=== PATIENT | female | born 1955 | race Caucasian/White ===

== ENCOUNTER 2021-02-03 | Emergency (ER) | payer SELFPAY ==
[2021-02-03 00:17] VITALS: BP 199/108; PULSE 91; RESP 16; TEMP 36.6; O2SAT 99
[2021-02-03 00:28] VITALS: BP 199/108; BP 209/97
[2021-02-03 01:00] LABS: Basophils Absolute Auto 0.1 K/mm3 (0.0-0.1); Basophils Percent Auto 0.7 % (0.2-1.2); Eosinophils Absolute Auto 0.4 K/mm3 (0-0.3); Eosinophils Percent Auto 4.1 % (0-4.4); Hematocrit 38.1 % (37.0-47.0); Hemoglobin 12.8 g/dL (12.0-15.0); Immature Granulocyte Absolute 0.12 K/mm3 (0.00-0.031); Immature Granulocyte Percent A 1.4 % (0-0.5); Lymphocytes Absolute Auto 2.56 K/mm3 (0.9-3.2); Mean Corpuscular HGB Conc 33.6 g/dl (32-36); Mean Corpuscular Hemoglobin 29.3 pg (26-34); Mean Corpuscular Volume 87.2 fl (80-100); Monocytes Absolute Auto 0.8 K/mm3 (0.1-0.6); Monocytes Percent Auto 9.1 % (2.6-8.5); Neutrophils Absolute Auto 4.7 K/mm3 (1.3-6.7); Neutrophils Percent Auto 54.7 % (45.5-73.1); Platelet Count Result 338 k/mm3 (150-375); Red Blood Count 4.37 M/mm3 (4.2-5.4); Red Cell Distribution Width 12.2 % (11.5-14.5); White Blood Count 8.5 K/mm3 (4.5-10.0)
--- NOTE | 2021-02-03 01:07 | ED.GENADULT ---
HPI - General Adult General Chief complaint: Recheck/Abnormal Lab/Rx Stated complaint: high bp Time Seen by Provider: 02/03/21 00:15 History of Present Illness HPI narrative: Patient 65-year-old female presents the emergency department with chief complaint of high blood pressure. Patient reports that she has history of hypertension and is currently on a low-dose hydrochlorothiazide patient reports that she started having little bit of a headache and has not really been checking her blood pressure but decided to go ahead and check her blood pressure noticed that her blood pressure was in the 200s over the 100s. The patient states she had some bit of neck discomfort with this reports no shortness of breath no chest pain. Related Data Allergies Allergy/AdvReac Type Severity Reaction Status Date / Time NKDA Allergy Unknown Other Uncoded 02/03/21 00:23 Review of Systems Review of Systems: A 10 system review of systems was completed on the patient and is negative except for what is stated in the HPI. Nursing and ancillary documentation was reviewed. [facility] Family History Family History Mother Hypertension Sibling Hypertension Family history of heart disease in male family member before age 55 Father Family history of kidney disease Family history of diabetes mellitus in first degree relative Family history of heart disease in male family member before age 55 Social History Social History Smoking status: Never smoker Alcohol intake: current Exam Narrative: GENERAL: Well-appearing, well-nourished, and in no acute distress. HEAD: Normocephalic, atraumatic. EYES: PERRLA and EOMI. ENT: Nares clear, no rhinorrhea or epistaxis. Mucous membranes moist. NECK: Supple. CHEST: Clear to auscultation. No respiratory distress. HEART: Regular rate and rhythm. No murmur heard. Normal peripheral pulses. ABDOMEN: Soft, nontender, nondistended, normal active bowel sounds. EXTREMITIES: Normal range of motion. No edema. SKIN: Warm, dry, no rash. NEURO: No focal deficits. Alert and oriented x3. PSYCH: Normal mood and affect. Course Vital Signs Vital signs: Vital Signs Temperature 36.6 C 02/03/21 00:17 Pulse Rate 91 02/03/21 00:17 Respiratory Rate 16 02/03/21 00:17 Blood Pressure 199/108 H 02/03/21 00:17 Pulse Oximetry 99 02/03/21 00:17 Temperature 36.6 C 02/03/21 00:17 Pulse Rate 91 02/03/21 00:17 Respiratory Rate 16 02/03/21 00:17 Blood Pressure 167/86 H 02/03/21 01:35 Pulse Oximetry 99 02/03/21 00:17 Medical Decision Making Vital Signs Vital Signs: Vital Signs Temperature 36.6 C 02/03/21 00:17 Pulse Rate 91 02/03/21 00:17 Respiratory Rate 16 02/03/21 00:17 Blood Pressure 199/108 H 02/03/21 00:17 Pulse Oximetry 99 02/03/21 00:17 Temperature 36.6 C 02/03/21 00:17 Pulse Rate 91 02/03/21 00:17 Respiratory Rate 16 02/03/21 00:17 Blood Pressure 167/86 H 02/03/21 01:35 Pulse Oximetry 99 02/03/21 00:17 Lab Data Result diagrams: 02/03/21 00:53 02/03/21 00:52 Labs: Lab Results 02/03/21 02/03/21 02/03/21 Range/Units 00:52 00:53 01:09 WBC 8.5 (4.5-10.0) K/mm3 RBC 4.37 (4.2-5.4) M/mm3 Hgb 12.8 (12.0-15.0) g/dL Hct 38.1 (37.0-47.0) % MCV 87.2 (80-100) fl MCH 29.3 (26-34) pg MCHC 33.6 (32-36) g/dl RDW 12.2 (11.5-14.5) % Plt Count 338 (150-375) k/mm3 MPV 10.0 (7.4-10.4) fl Immature Gran % (Auto) 1.4 H (0-0.5) % Neut % (Auto) 54.7 (45.5-73.1) % Lymph % (Auto) 30.0 (18.3-44.2) % [place] % (Auto) 9.1 H (2.6-8.5) % Eos % (Auto) 4.1 (0-4.4) % Baso % (Auto) 0.7 (0.2-1.2) % Lymph # (Auto) 2.56 (0.9-3.2) K/mm3 [place] # (Auto) 0.8 H (0.1-0.6) K/mm3 Eos # (Auto) 0.4 H (0-0.3) K/mm3 Baso # (Auto) 0.1 (0.0-0.1
[2021-02-03 01:25] LABS: Alanine Aminotransferase 27 U/L (4-35); Albumin Level 4.4 g/dL (3.5-5.1); Alkaline Phosphatase 61 U/L (38-126); Anion Gap 7 mmol/L (8-16); Aspartate Amino Transferase 33 U/L (14-36); Bilirubin,Total 0.3 mg/dL (0.2-1.3); Blood Urea Nitrogen 18 mg/dL (7-17); Calcium 9.4 mg/dL (8.4-10.2); Carbon Dioxide 25 mmol/L (22-30); Chloride 102 mmol/L (98-107); Estimated CRCL calculation 83 ml/min; Estimated Glomerular Filt Rate > 60; Glucose 113 mg/dL (65-110); Potassium 3.5 mmol/L (3.4-5.0); Sodium 134 mmol/L (137-145)
[2021-02-03 01:35] VITALS: BP 167/86
[2021-02-03 01:41] LABS: Add Urine Microscopic? YES; Appearance Urine Clear (Clear); Bacteria Urine Trace /hpf; Bilirubin Urine Negative (Negative); Blood Urine Negative (Negative); Color Urine Straw (Yellow); Glucose Urine UA Negative (Negative); Ketones Urine Negative (Negative); Leukocyte Esterase Ur Trace LEU/UL (Negative); Nitrate Urine Negative (Negative); Protein Urine Negative (Negative); RBC Urine 0-2 /hpf (0-2); Squamous Epithelial Cell Urine Rare /hpf (Few); Urobilinogen Urine Negative mg/dL (<2.0)
[2021-02-03 01:42] LABS: Troponin I < 0.012 ng/mL (0.000-0.034)
[2021-02-03 01:45] LABS: Specific Grav Ur 1.004 (1.001-1.035)
[2021-02-03 03:06] VITALS: BP 148/89; PULSE 77; RESP 16; O2SAT 99
== END 2021-02-03 03:07 | disposition home or self-care (01) ==
PROVIDERS: Emergency Provider Emergency Medicine; PCP Family Medicine
DX: I10 Essential (primary) hypertension (principal)
CPT/HCPCS: 36415; 80053; 81001; 84484; 85025; 99284

== ENCOUNTER 2022-03-04 10:51 | Observation (INO) | payer MEDICARE, SELFPAY ==
[2022-03-04] VITALS (38 sets, daily range): BP systolic 176–212; BP diastolic 84–120; PULSE 76–89; RESP 12–19; TEMP 36.7–36.9; O2SAT 90–100; BMI 32.3
--- NOTE | ~2022-03-04 | CT_ITS ---
CT Abdomen and Pelvis with contrast. History: Abdominal pain. Spiral CT of the abdomen and pelvis was performed after the administration of intravenous contrast. 1 00 cc of Omnipaque 350 was administered intravenously without complication. Dose reduction technique was used on this scan by utilizing automated exposure control and iterative reconstruction technique. The dose-length product (DLP) was 932.01 mGy-cm. Findings: Scans through the lung bases demonstrate mild atelectatic change. The liver, spleen, pancreas, adrenals and kidneys are within normal limits. Calcified gallstones are present. No evidence of aortic aneurysm. No lymphadenopathy is seen. There is no evidence of bowel obstruction. Rectosigmoid anastomosis noted. There is no evidence to thao ggest acute appendicitis or diverticulitis. Images through the pelvis were performed. Urinary bladder unremarkable. Patient appears to be post hy sterectomy. No pelvic mass seen. No ascites is seen. Impression: Cholelithiasis. Postoperative changes, as above. Female Reviewed, dictated and finalized at [facility]. IC[employer] E[employer] KNITTER HAND FRAME Impression: Cholelithiasis. Postoperative changes, as above. Female
--- NOTE | 2022-03-04 12:07 | ED.ABDPAIN ---
HPI - Abdominal Pain General Chief Complaint: Abdominal Pain Stated Complaint: BACK/RUQ PAIN N/V Time Seen by Provider: 03/04/22 12:01 Source: RN notes reviewed History of Present Illness HPI narrative: Patient presents emergency room from home for abdominal pain. Patient states abdominal pain began at 2 AM this morning. The pain is located in the right upper abdomen radiates around to the back is described as sharp and stabbing in nature. States has been associate with nausea and vomiting. She denies any fevers or chills chest pain or shortness of breath she denies any diarrhea. States she is not take anything for the pain. States that she still has her gallbladder Related Data Allergies Allergy/AdvReac Type Severity Reaction Status Date / Time NKDA Allergy Unknown Other Uncoded 02/03/21 00:23 Review of Systems Review of Systems: Gen.: Denies fevers or chills ENT: Denies congestion Respiratory: Denies shortness of breath or cough CV: Denies chest pain or palpitations GI: See HPI denies burning, urgency, frequency or hematuria Musculoskeletal: Denies back pain or muscle pain Neuro: Denies numbness, tingling, weakness or focal weakness Skin: Denies rash Except as documented, all other systems reviewed and negative [facility] Past Medical History Medical History (Updated 03/04/22 @ 15:20 by Jose Deluna DO) Essential (primary) hypertension Family History Family History Mother Hypertension Sibling Hypertension Family history of heart disease in male family member before age 55 Father Family history of kidney disease Family history of diabetes mellitus in first degree relative Family history of heart disease in male family member before age 55 Social History Social History Smoking status: Never smoker Alcohol intake: current Exam Narrative: APPEARANCE: No acute distress, nontoxic, resting in bed HEENT: Normocephalic, atraumatic, OMM RESPIRATORY: No respiratory distress, clear to auscultation bilaterally with no rhonchi wheezing or rales CARDIOVASCULAR: RRR s murmur ABDOMINAL: Soft nondistended tender palpation right upper quadrant and epigastric region no tenderness in right lower quadrant, left lower quadrant and left upper quadrant no rebound or guarding MUSCULOSKELETAl: Moves all extremities. No clubbing, cyanosis or edema. NEURO: Awake and alert. Following commands, speech normal, no focal deficits SKIN:: Warm, dry. Normal Color PSYCHIATRIC: Normal affect/mood Course Course Emergency Course: Dr. Villafuerte came down to see the patient in the emergency department. After evaluation does request patient mated to his service will start on Zosyn Discussed with patient and family results of workup and diagnosis. Discussed need for admission. Patient and family understand and agree to current treatment plan Vital Signs Vital signs: Vital Signs Temperature 98.1 F 03/04/22 11:18 Pulse Rate 78 03/04/22 11:18 Respiratory Rate 16 03/04/22 11:18 Blood Pressure 176/108 H 03/04/22 11:18 Pulse Oximetry 99 03/04/22 11:18 Oxygen Delivery Room Air 03/04/22 11:18 Temperature 98.1 F 03/04/22 11:18 Pulse Rate 82 03/04/22 14:02 Respiratory Rate 12 03/04/22 14:02 Blood Pressure 184/88 H 03/04/22 14:02 Pulse Oximetry 100 03/04/22 14:02 Oxygen Delivery Room Air 03/04/22 11:18 MDM - Abdominal Pain Lab Data 03/04/22 11:54 03/04/22 11:54 Labs: Lab Results 03/04/22 03/04/22 03/04/22 Range/Units 11:54 11:54 11:54 WBC 16.5 H (4.5-10.0) K/mm3 RBC 5.12 (4.2-5.4) M/mm3 Hgb 14.7 (12.0-15.0) g/dL Hct 42.8 (37.0-47.0) % MCV 83.6 (80-100) fl MCH 28.7 (26-34) pg MCHC 34.3 (32-36) g/dl RDW 12.7 (11.5-14.5) % Plt Count 390 H (150-375) k/mm3 MPV 9.6 (7.4-10.4) fl Immature Gran %
--- NOTE | 2022-03-04 12:09 | ECG_ITS ---
Measurements Intervals [place] Rate: 78 P: 47 TX: 138 QRS: 6 QRSD: 109 T: 49 QT: 392 QTc: 447 Interpretive Statements SINUS RHYTHM INCOMPLETE RIGHT BUNDLE BRANCH BLOCK [90+ ms QRS DURATION, TERMINAL R IN V1/V2, 40+ ms S IN I/aVL/V4/V5/V6] BASELINE ARTIFACT PRESENT NO PREVIOUS ECG AVAILABLE FOR COMPARISON Electronically Signed On 03-04-2022 15:01:08 [employer] by Alexus Massey M.D.
[2022-03-04] MEDS: SODIUM CHLORIDE 0.9% IV 1,000 ML 999 ML IV CONT (12:13)
[2022-03-04] MEDS: ONDANSETRON INJ 4 MG/2 ML VIAL IV PUSH ×3 (12:13→20:36)
[2022-03-04 12:14] LABS: Basophils Absolute Auto 0.1 K/mm3 (0.0-0.1); Basophils Percent Auto 0.4 % (0.2-1.2); Eosinophils Percent Auto 0.1 % (0-4.4); Hematocrit 42.8 % (37.0-47.0); Hemoglobin 14.7 g/dL (12.0-15.0); Immature Granulocyte Absolute 0.26 K/mm3 (0.00-0.031); Immature Granulocyte Percent A 1.6 % (0-0.5); Lymphocytes Absolute Auto 1.48 K/mm3 (0.9-3.2); Mean Corpuscular HGB Conc 34.3 g/dl (32-36); Mean Corpuscular Hemoglobin 28.7 pg (26-34); Mean Corpuscular Volume 83.6 fl (80-100); Mean Platelet Volume 9.6 fl (7.4-10.4); Monocytes Absolute Auto 0.6 K/mm3 (0.1-0.6); Monocytes Percent Auto 3.6 % (2.6-8.5); Neutrophils Absolute Auto 14.1 K/mm3 (1.3-6.7); Neutrophils Percent Auto 85.3 % (45.5-73.1); Platelet Count Result 390 k/mm3 (150-375); Red Blood Count 5.12 M/mm3 (4.2-5.4); Red Cell Distribution Width 12.7 % (11.5-14.5); White Blood Count 16.5 K/mm3 (4.5-10.0)
[2022-03-04 12:15] LABS: Add Urine Microscopic? YES; Appearance Urine Cloudy (Clear); Bilirubin Urine Negative (Negative); Blood Urine 2+ (Negative); Color Urine Yellow (Yellow); Glucose Urine UA Negative (Negative); Ketones Urine Trace mg/dL (Negative); Leukocyte Esterase Ur Negative LEU/UL (Negative); Nitrate Urine Negative (Negative); Protein Urine 2+ mg/dL (Negative); Specific Grav Ur 1.015 (1.001-1.035); Urobilinogen Urine 0.2 mg/dL (<2.0); pH Urine 8.5 (5.0-9.0)
[2022-03-04 12:24] LABS: Alanine Aminotransferase 33 U/L (6-35); Albumin Level 4.9 g/dL (3.5-5.1); Alkaline Phosphatase 72 U/L (38-126); Anion Gap 11 mmol/L (8-16); Aspartate Amino Transferase 34 U/L (14-36); Bilirubin,Total 0.6 mg/dL (0.2-1.3); Blood Urea Nitrogen 11 mg/dL (7-17); Calcium 9.4 mg/dL (8.4-10.2); Carbon Dioxide 25 mmol/L (22-30); Chloride 97 mmol/L (98-107); Estimated CRCL calculation 111 ml/min; Estimated Glomerular Filt Rate > 60; Glucose 131 mg/dL (65-110); Lipase 105 U/L (23-300); Potassium 3.6 mmol/L (3.4-5.0); Sodium 133 mmol/L (137-145)
[2022-03-04 12:32] LABS: Amorphous Sediment Urine Moderate; Bacteria Urine Trace /hpf; Mucus Urine Rare /lpf; Squamous Epithelial Cell Urine Occasional /hpf (Few); WBC Urine 0-3 /hpf
--- NOTE | 2022-03-04 15:22 | PM.IMHP ---
H&P: HPI History of Present Illness Date/Time: 03/04/22 15:22 Chief Complaint: abdominal pain Narrative: The patient is a 66-year-old female presenting to the emergency department complaining severe right upper quadrant abdominal pain. The patient reports the symptoms started acutely this morning and is associated with nausea and vomiting. The patient also complains of severe bloating. The patient reports the pain is sharp stabbing and radiates into her back and right shoulder. The patient reports similar symptoms in the past, however, nothing this severe or long-lasting. Review of Systems Constitutional: Constitutional: Reports as per HPI, Reports anorexia, Denies chills, Reports fatigue, Denies fever(s), Denies lethargy, Reports malaise, Reports poor appetite, Denies weakness, Denies weight gain and Denies weight loss Eyes: Eyes: Reports no additional eye complaints ENT: Reports system reviewed and no additional complaints, except as documented Cardiovascular: Cardiovascular: Reports no additional cardiovascular complaints Respiratory: Respiratory: Reports no additional respiratory complaints Gastrointestinal: Gastrointestinal: Reports as per HPI, Reports abdominal pain, Reports bloating, Reports GI cramping, Reports nausea and Reports vomiting Genitourinary: Genitourinary: Reports no additional female genitourinary complaints Musculoskeletal: Musculoskeletal: Reports no additional musculoskeletal complaints Integumentary/Breasts: Skin/Breast: Reports system reviewed and no additional complaints, except as docu Neurologic: Reports system reviewed and no additional complaints, except as documented Psychiatric: Psychiatric: Reports no additional psychiatric complaints Endocrine: Endocrine: Reports no additional endocrine complaints Hematologic/Lymphatic: Hematologic/Lymphatic: Reports no additional hematologic/lymphatic complaints Allergic/Immunologic: Allergic/Immunologic: Reports no additional allergic/immunologic complaints [facility] Past Medical History Medical History Essential (primary) hypertension Family History Family History Mother Hypertension Sibling Hypertension Family history of heart disease in male family member before age 55 Father Family history of kidney disease Family history of diabetes mellitus in first degree relative Family history of heart disease in male family member before age 55 Social History Social History Smoking status: Never smoker Alcohol intake: current Meds Home Medications and Allergies Allergies Allergy/AdvReac Type Severity Reaction Status Date / Time NKDA Allergy Unknown Other Uncoded 02/03/21 00:23 Vital Signs Vital Signs - 24 hr 03/04/22 11:18 03/04/22 12:04 03/04/22 12:06 Temperature 36.7 C Pulse Rate 78 81 77 Respiratory Rate 16 16 13 Blood Pressure 176/108 H 212/96 H Pulse Oximetry 99 100 100 Oxygen Delivery Room Air 03/04/22 12:15 03/04/22 12:17 03/04/22 12:30 Temperature Pulse Rate 78 76 84 Respiratory Rate 15 12 15 Blood Pressure 196/95 H Pulse Oximetry 100 99 90 Oxygen Delivery 03/04/22 12:32 03/04/22 12:45 03/04/22 12:47 Temperature Pulse Rate 84 79 79 Respiratory Rate 15 15 15 Blood Pressure 182/92 H 189/95 H Pulse Oximetry 90 92 94 Oxygen Delivery 03/04/22 13:00 03/04/22 13:02 03/04/22 13:03 Temperature Pulse Rate 79 79 80 Respiratory Rate 15 13 13 Blood Pressure 190/88 H Pulse Oximetry 98 98 Oxygen Delivery 03/04/22 13:15 03/04/22 13:17 03/04/22 13:30 Temperature Pulse Rate 79 77 80 Respiratory Rate 15 12 17 Blood Pressure 182/88 H Pulse Oximetry 99 100 100 Oxygen Delivery 03/04/22 13:51 03/04/22 13:53 03/04/22 14:00 Temperature Pulse Rate 85 86 83 Respiratory Rate 12 13 Blood Pressure 18
[2022-03-04] MEDS: MORPHINE SULFATE (*CRX) 2 MG/ML INJ IV PUSH (15:36)
[2022-03-04 16:01] LABS: Influenza A QL RT-PCR Negative (Negative); Influenza B QL RT-PCR Negative (Negative); RSV RNA, RT-PCR Negative (Negative); SARS-CoV-2 RNA PCR Negative
[2022-03-04] MEDS: SODIUM CHLORIDE 0.9% IV 1,000 ML 125 ML IV CONT ×2 (16:33→23:50)
--- NOTE | 2022-03-04 16:48 | PC.NURSE ---
Pt. has their home hydrochlorothiazide with them Pt. requesting to take their missed dose from this morning due to her hypertension. ERP notified and is ok with patient taking their home medication dose.
[2022-03-04] MEDS: hydrALAZINE HCL 20 MG/ML VIAL 10 MG IV PUSH (20:31)
[2022-03-04] MEDS: MORPHINE SULFATE (*CRX) 4 MG/ML INJ IV PUSH ×2 (20:36→23:50)
[2022-03-05] VITALS (14 sets, daily range): BP systolic 137–176; BP diastolic 71–95; PULSE 67–97; RESP 12–20; TEMP 36.8–37.5; O2SAT 92–100
[2022-03-05 06:29] LABS: Basophils Percent Auto 0.2 % (0.2-1.2); Eosinophils Percent Auto 0.2 % (0-4.4); Hematocrit 42.5 % (37.0-47.0); Hemoglobin 14.2 g/dL (12.0-15.0); Immature Granulocyte Absolute 0.16 K/mm3 (0.00-0.031); Lymphocytes Percent Auto 11.1 % (18.3-44.2); Mean Corpuscular HGB Conc 33.4 g/dl (32-36); Mean Corpuscular Hemoglobin 27.9 pg (26-34); Mean Corpuscular Volume 83.5 fl (80-100); Mean Platelet Volume 9.4 fl (7.4-10.4); Monocytes Absolute Auto 1.2 K/mm3 (0.1-0.6); Monocytes Percent Auto 7.6 % (2.6-8.5); Neutrophils Percent Auto 79.9 % (45.5-73.1); Platelet Count Result 367 k/mm3 (150-375); Red Blood Count 5.09 M/mm3 (4.2-5.4); Red Cell Distribution Width 13.1 % (11.5-14.5); White Blood Count 16.2 K/mm3 (4.5-10.0)
[2022-03-05 06:48] LABS: Alanine Aminotransferase 28 U/L (6-35); Albumin Level 4.4 g/dL (3.5-5.1); Alkaline Phosphatase 65 U/L (38-126); Anion Gap 8 mmol/L (8-16); Aspartate Amino Transferase 29 U/L (14-36); Bilirubin,Total 0.7 mg/dL (0.2-1.3); Blood Urea Nitrogen 6 mg/dL (7-17); Calcium 8.3 mg/dL (8.4-10.2); Carbon Dioxide 29 mmol/L (22-30); Chloride 89 mmol/L (98-107); Estimated CRCL calculation 92 ml/min; Estimated Glomerular Filt Rate > 60; Glucose 135 mg/dL (65-110); Potassium 2.8 mmol/L (3.4-5.0); Sodium 126 mmol/L (137-145)
[2022-03-05] MEDS: POTASSIUM CHLORIDE INJ 40 MEQ in SODIUM CHLORIDE 0.9% IV 500 ML 130 MEQ IVPB (08:59)
[2022-03-05] MEDS: hydrALAZINE HCL 20 MG/ML VIAL 10 MG IV PUSH (09:05)
[2022-03-05] MEDS: ONDANSETRON INJ 4 MG/2 ML VIAL IV PUSH ×2 (10:14→16:23)
[2022-03-05] MEDS: MORPHINE SULFATE (*CRX) 4 MG/ML INJ IV PUSH (10:14)
--- NOTE | 2022-03-05 12:16 | WPDHPUPDATE1 ---
History and Physical Update Update Date/Time: 03/05/22 12:16 History and Physical has been reviewed, including an updated exam of the patient. There are NO changes in the patient's condition. Risks, benefits, and alternatives have been discussed and questions answered. Patient agrees to proceed with procedure.
[2022-03-05] MEDS: SODIUM CHLORIDE 0.9% IV 1,000 ML 125 ML IV CONT (12:28)
[2022-03-05] MEDS: LACTATED RINGERS 1,000 ML 30 ML IV CONT ×2 (13:30→16:26)
--- NOTE | 2022-03-05 14:12 | WPDANESEPPF ---
Anes - Initial Pre Proc Eval Procedure: Operation Date: 03/05/22 14:30 Proposed Procedures p Laparoscopic Cholecystectomy - Jessie Villafuerte MD Date/Time: 03/05/22 14:12 Surgeon: Jessie Villafuerte MD Pre Op Diagnosis: cholecystitis Patient Data Age: 66 Gender: F Height: 1.57 m Weight: 80.3 kg Last Vital Signs Temp 37.5 C 03/05/22 13:15 Pulse 83 03/05/22 13:15 Resp 18 03/05/22 13:15 BP 137/71 03/05/22 13:15 Pulse Ox 98 03/05/22 13:15 O2 Del Method Room Air 03/05/22 13:15 Allergies Allergy/AdvReac Type Severity Reaction Status Date / Time NKDA Allergy Unknown Other Uncoded 02/03/21 00:23 Home Medications Medication Instructions Recorded Confirmed Type hydrochlorothiazide 25 mg tablet 25 mg PO DAILY 03/05/22 03/05/22 History Laboratory Tests 03/04/22 03/05/22 03/05/22 15:17 05:51 05:51 WBC 16.2 K/mm3 H K/mm3 (4.5-10.0) RBC 5.09 M/mm3 M/mm3 (4.2-5.4) Hgb 14.2 g/dL g/dL (12.0-15.0) Hct 42.5 % % (37.0-47.0) MCV 83.5 fl fl (80-100) MCH 27.9 pg pg (26-34) MCHC 33.4 g/dl g/dl (32-36) RDW 13.1 % % (11.5-14.5) Plt Count 367 k/mm3 k/mm3 (150-375) MPV 9.4 fl fl (7.4-10.4) Immature Gran % (Auto) 1.0 % H % (0-0.5) Neut % (Auto) 79.9 % H % (45.5-73.1) Lymph % (Auto) 11.1 % L % (18.3-44.2) [place] % (Auto) 7.6 % % (2.6-8.5) Eos % (Auto) 0.2 % % (0-4.4) Baso % (Auto) 0.2 % % (0.2-1.2) Lymph # (Auto) 1.80 K/mm3 K/mm3 (0.9-3.2) [place] # (Auto) 1.2 K/mm3 H K/mm3 (0.1-0.6) Eos # (Auto) 0.0 K/mm3 K/mm3 (0-0.3) Baso # (Auto) 0.0 K/mm3 K/mm3 (0.0-0.1) Abs Immat Gran (auto) 0.16 K/mm3 H K/mm3 (0.00-0.031) Absolute Neuts (auto) 13.0 K/mm3 H K/mm3 (1.3-6.7) Absolute Nucleated RBC 0.0 K/mm3 K/mm3 (0.0-0.012) Nucleated RBC % 0.0 % % (0.0-0.2) Sodium 126 mmol/L L mmol/L (137-145) Potassium 2.8 mmol/L L* mmol/L (3.4-5.0) Chloride 89 mmol/L L mmol/L (98-107) Carbon Dioxide 29 mmol/L mmol/L (22-30) Anion Gap 8 mmol/L mmol/L (8-16) BUN 6 mg/dL L D mg/dL (7-17) Creatinine 0.50 mg/dL L mg/dL (0.7-1.0) Estim Creat Clear Calc 92 ml/min ml/min Estimated GFR > 60 (59 - ) Glucose 135 mg/dL H mg/dL (65-110) Calcium 8.3 mg/dL L mg/dL (8.4-10.2) Total Bilirubin 0.7 mg/dL mg/dL (0.2-1.3) AST 29 U/L U/L (14-36) ALT 28 U/L U/L (6-35) Alkaline Phosphatase 65 U/L U/L (38-126) Total Protein 8.0 g/dL g/dL (6.3-8.2) Albumin 4.4 g/dL g/dL (3.5-5.1) Influenza A (RT-PCR) Negative (Negative) Influenza B (RT-PCR) Negative (Negative) RSV (RT-PCR) Negative (Negative) SARS-CoV-2 RNA (RT-PCR) Negative Patient hx anesthesia problems: none Family hx anesthesia problems: none Results Review: All pre-operative results and documents have been reviewed as part of the pre-operative evaluation. [facility] Past Medical History Medical History Essential (primary) hypertension Family History Family History Mother Hypertension Sibling Hypertension Family history of heart disease in male family member before age 55 Father Family history of kidney disease Family history of diabetes mellitus in first degree relative Family history of heart disease in male family member before age 55 Social History Social History Smoking status: Never smoker Alcohol intake: current Drinks per week: 1 Substance use: never Lack of Transportation: No [place]
[2022-03-05] MEDS: BUPIVACAINE/EPINEPHRINE 0.5% 30 ML VIAL INFILTRATE (15:12)
--- NOTE | 2022-03-05 16:01 | W.PM.PROC2 ---
Procedure Note - Detailed Date of Procedure 03/05/22 Pre-op Diagnosis acute cholecystitis, cholelithiasis Post-op Diagnosis Same Procedure Performed Laparoscopic cholecystectomy Surgeon Jessie Villafuerte MD Anesthesia General Indications 66-year-old female presented to the ED complaining of severe right upper quadrant abdominal pain associated with nausea and vomiting. Workup including imaging significant for acute cholecystitis, cholelithiasis. Findings acute hydrops cholecystitis, cholelithiasis Description of Procedure The patient was taken to the operating room placed in the supine position. After adequate induction of general anesthesia, the patient was prepped and draped in normal sterile fashion. A time-out was then performed to verify the patient's identity as well as the procedure being performed. I then made a 5 mm incision in the infraumbilical region. Through this, a Veress needle was placed into the peritoneal cavity and CO2 gas was then insufflated. After adequate pneumoperitoneum was achieved, the Veress needle was removed and a 5 mm optiview trocar was placed through this incision under direct visualization. I then placed the laparoscope through this trocar site and under direct visualization placed a further 12 mm subxiphoid port as well as 2 additional 5 mm ports in the right upper abdomen. A inflammatory mass was noted in the right upper quadrant. I was able to dissect the omental adhesions off this mass to identify the gallbladder. The gallbladder was then identified and was noted to be severely inflamed, distended, and full of gallstones. Given the amount of inflammation, I decompressed the gallbladder with an aspirating needle. Hydrops cholecystitis was identified at this point. I was then able to place a grasper at the dome of the gallbladder and this was retracted anterior and cephalad up over the liver. A 2nd retractor was then placed at the infundibulum and retracted laterally, this allowed visualization of the triangle of [place]ot. I then was able to visualize the cystic duct in its entirety from its proximal insertion into the gallbladder, to its distal junction with the common hepatic/common bile duct junction. This was a difficult dissection given the inflammation and the extremely short cystic duct. It was also noted that the common bile duct, common hepatic duct was extremely dilated. I wanted to perform a cholangiogram, however given the extremely short cystic duct, I could not safely do so. At this point, I carefully skeletonized the short cystic duct with the [place] dissector. I then clipped and transected the proximal cystic duct. Next I visualized the cystic artery. Again the artery was skeletonized, clipped, and transected. I then used the Bovie cautery to take down the peritoneal attachments of the gallbladder off the liver bed. This was somewhat difficult given the amount of inflammation in the posterior space. Once the gallbladder specimen was completely detached, an endo-pouch was placed through the 12 mm port site. I then placed the gallbladder specimen into the Endo pouch and removed the endo-pouch from the 12 mm port site. Of note, the incision had to be extended to allow extraction of the specimen. The specimen will now be sent to pathology for further review. I then copiously irrigated the right upper quadrant. Hemostasis was noted in the liver bed, the clips were noted to be in good position on both the cystic duct stump and the cystic artery stump. No other pathology was noted in the right upper quadrant. I then moved the laparoscope to the subxiphoid port. No iatrogenic injury or other pathology was noted in the lower abdomen. I then closed the 12 mm trocar site under direct visualization using the Moises cone and 0 Vicryl suture. At this point, the abdomen was desufflated and all ports removed. All port sites were then closed with 4.O Monocryl subcuticular sutures. Dermabond was placed on eac
[2022-03-05] MEDS: fentaNYL CITRATE INJ (*CRX) 100 MCG/2 ML VIAL 25 MCG IV PUSH ×2 (16:46→17:32)
[2022-03-05] MEDS: HYDROcodone/acetaminophen (*CRX) 5-325 MG TABLET 1 TAB PO (23:09)
[2022-03-06 05:54] VITALS: BP 137/67; PULSE 74; RESP 14; TEMP 36.8; O2SAT 92
[2022-03-06] MEDS: HYDROcodone/acetaminophen (*CRX) 5-325 MG TABLET 1 TAB PO ×2 (06:01→10:25)
--- NOTE | 2022-03-06 06:55 | WPDANESPN ---
Anes - Prog Note Post-Op Date/Time: 03/06/22 06:55 Cardiovascular status: normal Respiratory status: normal Airway patency: baseline Mental status: baseline Post-Op hydration status: normal Vital Signs: Last Vital Signs Temp 98.2 F 03/06/22 05:54 Pulse 74 03/06/22 05:54 Resp 14 03/06/22 05:54 BP 137/67 03/06/22 05:54 Pulse Ox 92 03/06/22 05:54 O2 Del Method Room Air 03/05/22 17:25 O2 Flow Rate 6 03/05/22 15:57 Pain Score (VAS): 0/10 I/O: Intake & Output 03/05/22 03/05/22 03/06/22 15:59 23:59 07:59 Intake Total 1000 1290 750 Balance 1000 1290 750 Laboratory Tests 03/05/22 05:51 03/05/22 05:51 Post-procedural complaints: none Patient Feedback: Patient satisfied with anesthetic care.
[2022-03-06 08:28] LABS: Hematocrit 38.8 % (37.0-47.0); Hemoglobin 12.9 g/dL (12.0-15.0); Mean Corpuscular HGB Conc 33.2 g/dl (32-36); Mean Corpuscular Hemoglobin 28.5 pg (26-34); Mean Corpuscular Volume 85.7 fl (80-100); Mean Platelet Volume 9.4 fl (7.4-10.4); Platelet Count Result 368 k/mm3 (150-375); Red Blood Count 4.53 M/mm3 (4.2-5.4); Red Cell Distribution Width 13.3 % (11.5-14.5); White Blood Count 12.8 K/mm3 (4.5-10.0)
[2022-03-06 08:41] LABS: Alanine Aminotransferase 43 U/L (6-35); Albumin Level 4.3 g/dL (3.5-5.1); Alkaline Phosphatase 53 U/L (38-126); Anion Gap 5 mmol/L (8-16); Aspartate Amino Transferase 42 U/L (14-36); Bilirubin,Total 0.4 mg/dL (0.2-1.3); Blood Urea Nitrogen 10 mg/dL (7-17); Calcium 8.7 mg/dL (8.4-10.2); Carbon Dioxide 29 mmol/L (22-30); Chloride 98 mmol/L (98-107); Estimated CRCL calculation 68 ml/min; Estimated Glomerular Filt Rate > 60; Glucose 91 mg/dL (65-110); Potassium 3.3 mmol/L (3.4-5.0); Sodium 132 mmol/L (137-145)
[2022-03-06] MEDS: hydroCHLOROthiazide 25 MG TABLET PO (10:25)
--- NOTE | 2022-03-06 10:57 | PM.DS ---
DS: Admitting Diagnosis Discharge Date 03/06/2022 Admitting Diagnosis cholelithiasis with acute cholecystitis DS: Discharge Diagnosis Discharge Diagnosis (1) Acute cholecystitis: Code(s): K81.0 - Acute cholecystitis Status: Acute DS: Summary Hospital Course Hospital Course: about 2:00 a.m. on 03/04/2022 patient began experiencing severe right upper quadrant abdominal pain that radiated through to her back. She went to the emergency room where was she was noted to have right upper quadrant tenderness. CT scan showed gallstones. She was admitted by Dr. Jay. She continued to have pain and on 03/05/2022 underwent a laparoscopic cholecystectomy. At surgery she was noted to have hydrops of the gallbladder. She did well following surgery. She was comfortable on oral analgesics. She was ambulatory and taking oral nutrition without difficulty. She was discharged in good condition the day after surgery, 03/06/2022. Status at Discharge Overall status at discharge: patient is progressing back to baseline Time Spent with Patient Time attestation: Total time spent providing and/or coordinating discharge services: Time spent: Less than 30 minutes Exam GI: Inspection: non-distended and incision ( Healing well) GI Palp: Yes Soft to palpation and Yes Tenderness to palpation present (GI) Auscultation: normal bowel sounds DS: Data Data Completed and Pending Pending studies at discharge: Pending at discharge 03/05/22 15:09 Surgical [PTH] Routine Labs on day of discharge: Labs from last 24 hours 03/06/22 03/06/22 08:19 08:19 WBC 12.8 H RBC 4.53 Hgb 12.9 Hct 38.8 MCV 85.7 MCH 28.5 MCHC 33.2 RDW 13.3 Plt Count 368 MPV 9.4 Sodium 132 L Potassium 3.3 L Chloride 98 Carbon Dioxide 29 Anion Gap 5 L BUN 10 Creatinine 0.70 Estim Creat Clear Calc 68 Estimated GFR > 60 Glucose 91 Calcium 8.7 Total Bilirubin 0.4 AST 42 H ALT 43 H Alkaline Phosphatase 53 Total Protein 7.0 Albumin 4.3 Discharge Plan Discharge Attending physician on discharge: Jessie Villafuerte Discharging Clinician: Jsesie Villafuerte Patient Disposition: Home, Self-Care Activity: other - see discharge instructions Diet: other - see discharge instructions Wound Care Instructions: other - see discharge instructions Discharge Instructions: DISCHARGE INSTRUCTION SHEET FOR HERNIA, GALLBLADDER AND APPENDIX SURGERIES DR. VILLAFUERTE PATIENT TO TAKE HOME 1. May shower in 24 hours, no soaking in bath x 2weeks. 2. Call office for: Wound increasingly painful or bleeding Vomiting Fever of greater than 101 degrees 3. If no bowel movement for three days, take 1 oz. (30 ml) Milk of Magnesia or MiraLax 17g 1 to 2 times daily. 4. No heavy lifting > 10-15 pounds x 6 weeks for hernia repairs and 2 weeks for laparoscopic cholecystectomy or appendectomy. 5. No driving for 3 days or while taking narcotic pain medications. 6. Ice to surgical site for 48 hours (30 min on, then 30 min off). 7. Up walking 10-30 minutes three times per day. 8. Resume previous home medications. 9. Follow-up 10-14 days in office for wound check or as previously scheduled. ([id number]) 10. Oral pain medications prescription to be sent to pharmacy. Take Tylenol 500mg every 6 hours and Ibuprofen 600mg every 6 hours for the first 2 days, then as needed. 11. NUTRITION: Start out by drinking fluids and increase your diet as tolerated. If you experience nausea, try dry toast, crackers, and 7-UP. If nausea or vomiting persists, contact your surgeon?s office. 12. Gallbladders-Low Fat Diet for 2 weeks (send care note of low fat diet) 13. Inguinal Hernias-wear scrotal support for 48 hours 14. Abdominal Hernias-if sent home with abdominal binder, wear for the first 2 weeks (may remove to shower or at night to sleep).
== END 2022-03-06 13:02 | disposition home or self-care (01) ==
LOC: ANHED 15:20 → ANH3MEDSUR 18:40
PROVIDERS: Emergency Medicine; Admitting Provider Surgery; Emergency Provider Emergency Medicine; PCP Family Medicine; Visit Provider Surgery
PROC: 0FT44ZZ Resection of Gallbladder, Percutaneous Endoscopic Approach (ICD-10-PCS; CPT 47562; principal; 2022-03-05 14:30)
DX: K80.00 Calculus of gallbladder with acute cholecystitis without obstruction (principal); K82.1 Hydrops of gallbladder; I10 Essential (primary) hypertension; I45.10 Unspecified right bundle-branch block; F10.90 Alcohol use, unspecified, uncomplicated; E66.9 Obesity, unspecified; Z68.32 Body mass index [BMI] 32.0-32.9, adult; Z82.49 Family history of ischemic heart disease and other diseases of the circulatory system
CPT/HCPCS: 47562; 36415; 74177; 80053; 81001; 83690; 85025; 85027; 87637; 88304; 93005; 96361; 96365; 96375; 96376; 99285; A9270; G0378; J0131; J0360; J2250; J2270; J2405; J2543; J3010; J3480; J7030; J7040; J7120; Q9967

== ENCOUNTER 2022-03-15 08:14 | Outpatient (CLI) | payer MEDICARE, SELFPAY ==
[2022-03-15 17:35] LABS: Basophils Absolute Auto 0.1 K/mm3 (0.0-0.1); Basophils Percent Auto 0.8 % (0.2-1.2); Eosinophils Absolute Auto 0.7 K/mm3 (0-0.3); Eosinophils Percent Auto 6.9 % (0-4.4); Hematocrit 40.3 % (37.0-47.0); Hemoglobin 12.6 g/dL (12.0-15.0); Immature Granulocyte Absolute 0.12 K/mm3 (0.00-0.031); Immature Granulocyte Percent A 1.3 % (0-0.5); Lymphocytes Absolute Auto 2.43 K/mm3 (0.9-3.2); Lymphocytes Percent Auto 25.7 % (18.3-44.2); Mean Corpuscular HGB Conc 31.3 g/dl (32-36); Mean Corpuscular Hemoglobin 28.4 pg (26-34); Mean Corpuscular Volume 90.8 fl (80-100); Monocytes Absolute Auto 0.8 K/mm3 (0.1-0.6); Monocytes Percent Auto 8.4 % (2.6-8.5); Neutrophils Absolute Auto 5.4 K/mm3 (1.3-6.7); Neutrophils Percent Auto 56.9 % (45.5-73.1); Platelet Count Result 418 k/mm3 (150-375); Red Blood Count 4.44 M/mm3 (4.2-5.4); Red Cell Distribution Width 13.2 % (11.5-14.5); White Blood Count 9.5 K/mm3 (4.5-10.0)
[2022-03-15 20:06] LABS: Alanine Aminotransferase 26 U/L (6-35); Albumin Level 4.2 g/dL (3.5-5.1); Alkaline Phosphatase 61 U/L (38-126); Anion Gap 7 mmol/L (8-16); Aspartate Amino Transferase 31 U/L (14-36); Bilirubin,Total 0.3 mg/dL (0.2-1.3); Blood Urea Nitrogen 11 mg/dL (7-17); Carbon Dioxide 28 mmol/L (22-30); Chloride 105 mmol/L (98-107); Cholesterol 225 mg/dL (0-200); Estimated Glomerular Filt Rate > 60; Glucose 82 mg/dL (65-110); HDL Direct 38 mg/dL; Potassium 3.8 mmol/L (3.4-5.0); Sodium 140 mmol/L (137-145); Triglycerides 187 mg/dL (<150)
[2022-03-15 20:17] LABS: LDL Cholesterol Direct 125 mg/dL
[2022-03-15 20:58] LABS: Vitamin D 25 Hydroxy 34.4 ng/mL
== END 2022-03-15 08:15 | disposition home or self-care (01) ==
LOC: ANHGOSHLAB 08:16
PROVIDERS: PCP Internal Medicine; Visit Provider Clinical Nurse Specialist
DX: I10 Essential (primary) hypertension (principal); E55.9 Vitamin D deficiency, unspecified
CPT/HCPCS: 36415; 80053; 80061; 82306; 84443; 85025

== ENCOUNTER 2022-03-16 14:25 | Outpatient (CLI) | payer MEDICARE, SELFPAY ==
[2022-03-16 19:39] LABS: Basophils Absolute Auto 0.1 K/mm3 (0.0-0.1); Basophils Percent Auto 0.7 % (0.2-1.2); Eosinophils Absolute Auto 0.6 K/mm3 (0-0.3); Eosinophils Percent Auto 6.1 % (0-4.4); Hemoglobin 12.5 g/dL (12.0-15.0); Immature Granulocyte Absolute 0.21 K/mm3 (0.00-0.031); Immature Granulocyte Percent A 2.1 % (0-0.5); Lymphocytes Percent Auto 30.3 % (18.3-44.2); Mean Corpuscular HGB Conc 32.9 g/dl (32-36); Mean Corpuscular Hemoglobin 28.2 pg (26-34); Mean Corpuscular Volume 85.6 fl (80-100); Mean Platelet Volume 10.2 fl (7.4-10.4); Monocytes Absolute Auto 0.9 K/mm3 (0.1-0.6); Monocytes Percent Auto 8.9 % (2.6-8.5); Neutrophils Absolute Auto 5.3 K/mm3 (1.3-6.7); Neutrophils Percent Auto 51.9 % (45.5-73.1); Platelet Count Result 421 k/mm3 (150-375); Red Blood Count 4.44 M/mm3 (4.2-5.4); Red Cell Distribution Width 12.7 % (11.5-14.5); White Blood Count 10.2 K/mm3 (4.5-10.0)
== END 2022-03-16 14:26 | disposition home or self-care (01) ==
LOC: ANHGOSHLAB 14:27
PROVIDERS: PCP Internal Medicine; Visit Provider Clinical Nurse Specialist
DX: D75.839 Thrombocytosis, unspecified (principal)
CPT/HCPCS: 36415; 85025

== ENCOUNTER 2022-04-02 06:40 | Outpatient (CLI) | payer MEDICARE, SELFPAY ==
--- NOTE | ~2022-04-02 | MR_ITS ---
EXAMINATION: MR MRCP wo/w con/w 3D wo ind DATE: 04/02/2022 07:45 INDICATION: Common bile duct dilation TECHNIQUE: Magnetic resonance imaging (MRI) of the abdomen was performed without and with 17 mL Multi anibal intravenous contrast. Sequences included coronal T2-weighted SS-FSE, coronal T2-weighted FS SS- FSE, coronal T2-weighted FS FIESTA, axial T2-weighted FS FIESTA, axial T2-weighted FIESTA, sagittal T 2-weighted SS-FSE, axial T1-weighted dual-echo FSPGR, axial T2-weighted SS-FSE, axial T1-weighted LAV A, axial T2-weighted STIR FSE. Thick-slab T2-weighted FRFSE-XL images were obtained for magnetic reso nance cholangiopancreatography (MRCP). Rotating maximum intensity projection 3-D reconstructions of t he volumetric data were created by the technologist. Postcontrast sequences included a time course of axial T1-weighted LAVA. COMPARISON: CT dated 03/04/2022 FINDINGS: ABDOMEN MRI: Heart size is normal. No pericardial or pleural effusion. Liver, spleen, pancreas, bilateral adrenal glands and left kidney are normal. 6 mm T2 hyperintense nonenhancing cyst at the lower pole of the ri ght kidney. Multiple signal deficient gallstones in the otherwise normal-appearing gallbladder. There are a few colonic diverticula without adjacent inflammatory change to suggest diverticulitis. No pat hologically enlarged abdominal or intrapelvic lymphadenopathy. Mild S-shaped curvature of the thoraco lumbar spine with mild spondylosis. There is dilation of the common bile duct which measures up to 9 mm in maximal diameter. ABDOMEN MRCP: There is a single currently nonobstructing 5 mm gallstone stone in the distal common bile duct. No in trahepatic biliary ductal dilation. Main pancreatic duct is also normal in caliber. IMPRESSION: 1. Cholelithiasis with additional single currently nonobstructing 5 mm gallstone within the mildly di lated common bile duct which measures 9 mm in maximal diameter. Reviewed, dictated and finalized at location B. RNET PROGRAMMER IMPRESSION: 1. Cholelithiasis with additional single currently nonobstructing 5 mm gallston e within the mildly dilated common bile duct which measures 9 mm in maximal chata meter.
== END 2022-04-02 06:41 | disposition home or self-care (01) ==
PROVIDERS: PCP Internal Medicine; Visit Provider Surgery
DX: K83.8 Other specified diseases of biliary tract (principal); K80.00 Calculus of gallbladder with acute cholecystitis without obstruction
CPT/HCPCS: 74183; 76376; A9577

== ENCOUNTER 2022-08-19 09:56 | Outpatient (CLI) | payer MEDICARE, SELFPAY ==
[2022-08-19 17:27] LABS: Basophils Absolute Auto 0.1 K/mm3 (0.0-0.1); Basophils Percent Auto 0.6 % (0.2-1.2); Eosinophils Absolute Auto 0.3 K/mm3 (0-0.3); Eosinophils Percent Auto 3.8 % (0-4.4); Hematocrit 43.4 % (37.0-47.0); Hemoglobin 14.1 g/dL (12.0-15.0); Immature Granulocyte Absolute 0.08 K/mm3 (0.00-0.031); Lymphocytes Absolute Auto 2.22 K/mm3 (0.9-3.2); Lymphocytes Percent Auto 27.3 % (18.3-44.2); Mean Corpuscular HGB Conc 32.5 g/dl (32-36); Mean Corpuscular Hemoglobin 29.1 pg (26-34); Mean Corpuscular Volume 89.5 fl (80-100); Mean Platelet Volume 10.5 fl (7.4-10.4); Monocytes Absolute Auto 0.7 K/mm3 (0.1-0.6); Neutrophils Absolute Auto 4.8 K/mm3 (1.3-6.7); Neutrophils Percent Auto 59.3 % (45.5-73.1); Platelet Count Result 349 k/mm3 (150-375); Red Blood Count 4.85 M/mm3 (4.2-5.4); Red Cell Distribution Width 12.5 % (11.5-14.5); White Blood Count 8.1 K/mm3 (4.5-10.0)
[2022-08-19 19:25] LABS: Alanine Aminotransferase 26 U/L (6-35); Albumin Level 4.3 g/dL (3.5-5.1); Alkaline Phosphatase 52 U/L (38-126); Anion Gap 7 mmol/L (8-16); Aspartate Amino Transferase 34 U/L (14-36); Bilirubin,Total 0.6 mg/dL (0.2-1.3); Blood Urea Nitrogen 15 mg/dL (7-17); Calcium 9.6 mg/dL (8.4-10.2); Carbon Dioxide 31 mmol/L (22-30); Chloride 100 mmol/L (98-107); Cholesterol 254 mg/dL (0-200); Estimated Glomerular Filt Rate > 60; Glucose 86 mg/dL (65-110); HDL Direct 47 mg/dL; Magnesium 2.3 mg/dL (1.6-2.3); Potassium 3.9 mmol/L (3.4-5.0); Sodium 138 mmol/L (137-145); Triglycerides 187 mg/dL (<150)
[2022-08-19 19:36] LABS: LDL Cholesterol Direct 156 mg/dL
== END 2022-08-19 09:57 | disposition home or self-care (01) ==
LOC: ANHGOSHLAB 09:58
PROVIDERS: PCP Internal Medicine; Visit Provider Clinical Nurse Specialist
DX: D75.839 Thrombocytosis, unspecified (principal); I10 Essential (primary) hypertension; R25.2 Cramp and spasm
CPT/HCPCS: 36415; 80053; 80061; 83735; 84443; 85025

== ENCOUNTER 2023-08-22 07:55 | Outpatient (CLI) | payer MEDICARE, SELFPAY ==
[2023-08-22 13:36] LABS: Basophils Absolute Auto 0.1 K/mm3 (0.0-0.1); Basophils Percent Auto 0.6 % (0.2-1.2); Eosinophils Absolute Auto 0.6 K/mm3 (0-0.3); Eosinophils Percent Auto 7.2 % (0-4.4); Hematocrit 42.3 % (37.0-47.0); Hemoglobin 13.6 g/dL (12.0-15.0); Immature Granulocyte Absolute 0.12 K/mm3 (0.00-0.031); Immature Granulocyte Percent A 1.4 % (0-0.5); Lymphocytes Absolute Auto 2.56 K/mm3 (0.9-3.2); Lymphocytes Percent Auto 29.7 % (18.3-44.2); Mean Corpuscular HGB Conc 32.2 g/dl (32-36); Mean Corpuscular Hemoglobin 28.8 pg (26-34); Mean Corpuscular Volume 89.4 fl (80-100); Mean Platelet Volume 10.6 fl (7.4-10.4); Monocytes Absolute Auto 0.8 K/mm3 (0.1-0.6); Neutrophils Absolute Auto 4.5 K/mm3 (1.3-6.7); Neutrophils Percent Auto 52.1 % (45.5-73.1); Platelet Count Result 328 k/mm3 (150-375); Red Blood Count 4.73 M/mm3 (4.2-5.4); Red Cell Distribution Width 12.6 % (11.5-14.5); White Blood Count 8.6 K/mm3 (4.5-10.0)
[2023-08-22 13:55] LABS: Alanine Aminotransferase 21 U/L (6-35); Albumin Level 4.3 g/dL (3.5-5.1); Alkaline Phosphatase 61 U/L (38-126); Anion Gap 8 mmol/L (4-12); Aspartate Amino Transferase 49 U/L (14-36); Bilirubin,Total 0.7 mg/dL (0.2-1.3); Blood Urea Nitrogen 12 mg/dL (7-17); Calcium 9.5 mg/dL (8.4-10.2); Carbon Dioxide 28 mmol/L (22-30); Chloride 104 mmol/L (98-107); Cholesterol 246 mg/dL (0-200); Estimated Glomerular Filt Rate > 60; Glucose 91 mg/dL (65-110); HDL Direct 50 mg/dL; Potassium 3.8 mmol/L (3.4-5.0); Sodium 140 mmol/L (137-145); Triglycerides 188 mg/dL (<150)
[2023-08-22 14:19] LABS: Vitamin D 25 Hydroxy 47.1 ng/mL
[2023-08-22 14:23] LABS: LDL Cholesterol Direct 154 mg/dL
== END 2023-08-22 07:56 | disposition home or self-care (01) ==
PROVIDERS: PCP Internal Medicine; Visit Provider Clinical Nurse Specialist
DX: K83.8 Other specified diseases of biliary tract (principal); Z13.228 Encounter for screening for other metabolic disorders; E78.5 Hyperlipidemia, unspecified; I10 Essential (primary) hypertension; E55.9 Vitamin D deficiency, unspecified
CPT/HCPCS: 36415; 80053; 80061; 82306; 84443; 85025

== ENCOUNTER 2024-04-19 07:55 | Outpatient (CLI) | payer MEDICARE, SELFPAY ==
--- OUTSIDE RECORDS SUMMARY | 2024-04-19 08:00 | XMS_ITS | Clinical Summary ---
Author Organization [place] [id number] [facility] Address [facility] [place] [address] Care Team Providers Care Straight Line Edger Name Role Phone Pasha Mitchell MD Unavailable [phone] Alex Licea DO Primary Care Provider [phone] Allergies No known active allergies Medications zinc 50 mg tablet Take 1 tablet by mouth daily Active cholecalciferol (VITAMIN D-3) 5,000 unit capsule Take 1 capsule (5,000 Units total) by mouth daily Active artificial tears,hypromell ose, 0.3 % drops Administer 2 drops into affected eye(s) nightly Active losartan (COZAAR) 50 mg tablet Take 1 tablet (50 mg total) by mouth daily 3 Active hydroCHLOROthia zide (MICROZIDE) 12.5 mg capsule Take 1 capsule (12.5 mg total) by mouth daily Active docusate sodium (COLACE) 100 mg capsuleIndicati ons:constipatio n Take 1 capsule (100 mg total) by mouth 2 (two) times a day For constipation. 60 capsule 3 Active acetaminophen-c odeine (TYLENOL with CODEINE #4) 300-60 mg per tablet Take 1 tablet by mouth every 4 (four) hours as needed for pain 30 tablet 3 Active Active Problems Problem Noted Date Diagnosed Date Vaginal vault prolapse after hysterectomy 2022 Stress incontinence, female 01/19/2023 Urgency incontinence 01/19/2023 Surgical History Surgery Date Site/Laterality Comments BREAST BIOPSY Left HYSTERECTOMY BREAST EXCISIONAL BIOPSY Right Papilloma US GUIDED BIOPSY LYMPH NODE SUPERFICIAL LEFT 2 N/A BUNIONECTOMY Bilateral CORRECTION HAMMER TOE Bilateral CHOLECYSTECTOMY REFRACTIVE SURGERY Medical History Medical History Date Comments Hypertension Obesity BMI 33 Vaginal vault prolapse after hysterectomy Family History Medical History Relation Name Comments Breast cancer Neg Hx Social History Tobacco Use Types Packs/Day Years Used Date Smoking Tobacco: Never Smokeless Tobacco: Never AUDIT-C Answer Date Recorded Q1: How often do you have a drink containing alc ohol? Monthly or less 01/28/2023 Q2: How many drinks containi ng alcohol do you have on a typical day when you are drinking? 1 or 2 01/28/2023 Q3: How often do you have si x or more drinks on one occasion? Never 01/28/2023 Personal Safety Answer Date Recorded Have you ever been in or are you currently in a harmful physical or emotional relationship or is someone making you feel afraid or unsafe? Denies 02/15/2023 Comments No Sex and Gender Information Value Date Recorded Sex Assigned at Not on file Legal Sex Female 11:45 AM CDT Gender Identity Female 06/20/2023 5:33 AM CDT Sexual Orientation Straight 06/20/2023 5: 33 AM CDT Obstetrics History Para Term AB IAB SAB Ectopic Multiple Livin g Live Births 2 2 2 Date Outcome GA Total Labor Labor/2nd/3rd Weight Sex Type Anes PTL Jasmyn A1 A5 Name Clin Term Term Last Filed Vital Signs Vital Sign Reading Time Taken Comments Blood Pressure 126/67 02/15/2023 4:35 PM STRAIGHT LINE EDGER Pulse 69 02/15/2023 4:35 PM STRAIGHT LINE EDGER Temperature 36 C (96.8 F) 02/15/2023 2:38 PM STRAIGHT LINE EDGER Respiratory Rate 12 02/15/2023 3:10 PM STRAIGHT LINE EDGER Oxygen Saturation 95% 02/15/2023 4:35 PM STRAIGHT LINE EDGER Inhaled Oxygen Concentration - - Weight 85.2 kg (187 lb 13.3 oz) 02/15/2023 8:36 AM STRAIGHT LINE EDGER Height 157.5 cm (5' 2 ) 02/15/2023 8:36 AM STRAIGHT LINE EDGER Body Mass Index 34.35 02/15/2023 8:36 AM STRAIGHT LINE EDGER Plan of Treatment Health Maintenance Due Date Last Done Comments Colon Cancer Screening-Colonoscopy 1955 Depression Screening 1955 Hepatitis C Screening 1955 Osteoporosis Screening-Bone Density Scan 1956 Hepatitis B Screening 1974 Zoster Vaccine (1 of 2) 2006 Pneumococcal vaccine 65+ (1 of 1 - PCV) 2021 Well Visit 65+ 2021 Covid-19 Vaccine (2 - 2023-2 5 season) 2023 06/13/2020 Influenza Vaccine (#1) 2023 Fall Risk Assessment 02/16/2024 02/15/2023 Breast Cancer Screening-Mammogram 06/16/2024 06/17/2023, 05/17/2022, 05/07/2021, Additional history exists DTaP/Tdap/Td Vaccine (2 - Td or Tdap) 10/22/2025 10/23/2015 Medical Devices Implanted Type Area Area Counselor Device Identifier Shelf Expiration Date Model / Serial / Lot Screw Screw Bilateral: Foot Description:Bilateral bunion surgery Wires Bilateral: Foot Description:Bunion surgery Imperator Alberto Upsylon 35.4cm Elongation Profile Lightweight Large Pore Low [id number] - [id number] Implanted:Qty: 1 on 02/15/2023 by Getachew Musa MD at [facility] N/A: Pelvis [employer] Alberto 10/04/2025 [id number] / / [id number] [employer] Sling Urinary Incontinence Female Stress Short Desara Blue Julienne-Ds01bs - [id number] Implanted:Qty: 1 on 02/15/2023 by Getachew Musa MD at [facility] N/A: Pelvis [employer] [id number] S / / Procedures Procedure Name Priority Date/Time Associated Diagnosis Comments SCREENING MAMMOGRAM BILATERAL W AZAEL Schedule Routine, Read Routine (OP Routine) 06/17/2023 11:26 AM CDT Screening mammogram, encounter for from Last 3 Months or Most Recently Relevant to Health Maintenance Results * Screening Mammogram Bilateral W Azael (06/17/2023 11:26 AM CDT) Anatomical Region Laterality Modality Breast Bilateral Mammography Impressions 06/17/2023 11:53 AM CDT BI-RADS ATLAS category (overall): 2 - Benign There is no mammographic evidence of malignancy. A 1 year screening mammogram is recommended. The patient has been or will be contacted. We recommend annual screening mammography for women at average risk of breast cancer beginning at age 40, based on guidelines of the [place] [employer] (ACR Practice Parameter for the Performance of Screening and Diagnostic Mammography) and [place] [employer]nec[employer]. For women with and elevated risk of breast cancer, please refer to the ACR Practice Parameter for specific screening recommendations. The patient will be entered into a reminder system with a target due date of 1 year for her next screening exam. Narrative 06/17/2023 11:53 AM CDT Screening Mammogram Bilateral W Azael: 06/17/23 The study was acquired using full field digital technology and interpreted from soft copy. 2D digital mammographic views, as well as 3D digital tomosynthesis were performed in the CC and MLO projections. CLINICAL: Screening mammogram, encounter for. No relevant medical history has been documented for this patient. History of breast cancer in Neg Hx. COMPARISONS: 05/17/2022 Diagnostic Mammogram Bilateral W Azael 12/11/2021 Diagnostic Mammogram Left W Azael 05/07/2021 Diagnostic Mammogram Bilateral W Azael 03/28/2020 Screening Mammogram Bilateral W Azael 01/05/2019 Screening Mammogram Bilateral W Azael 12/16/2017 Diagnostic Mammogram Bilateral W Azael BREAST TISSUE: The breasts are heterogeneously dense, which may obscure small masses. FINDINGS: There are stable post operative changes in the right breast. A biopsy marker clip is unchanged in the left breast. There are unchanged benign microcalcifications in both breasts. There is no new suspicious finding in either breast on mammogram. us Self Screening Mammogram IMG MAMMO PROCEDURES Fi nal Result from Last 3 Months or Most Recently Relevant to Health Maintenance Insurance [employer]NA [facility]TRA Advance Directives For more information, please contact: [phone] Documents on File Type Date Recorded Patient Tool Honing Machine Set Up Operator Expl anation ADVANCE DIRECTIVE 09/08/2017 12:00 AM POWER OF MACHINE SIZER FINANCIAL/MEDICAL Care Teams Straight Line Edger Relationship Specialty Start Date End Date Alex Licea DO [address] [address] PCP - General Internal Medicine 05/17/22 Pasha Mitchell MD [address] [address] Consulting Physician Surgery 01/21/22
--- OUTSIDE RECORDS SUMMARY | 2024-04-19 08:00 | XMS_ITS | Clinical Summary ---
Author Organization [facility] Address [address] [place] [address] Care Team Providers Care Probation Counselor Name Role Phone Unavailable Primary Care Provider Unavailabl e Social History Tobacco Use Types Packs/Day Years Used Date Smoking Tobacco: Never Assessed Comments Unknown Sex and Gender Information Value Date Recorded Sex Assigned at Not on file Legal Sex Female 8:22 PM CDT Gender Identity Not on file Sexual Orientation Not on file Plan of Treatment Health Maintenance Due Date Last Done Comments Colorectal Cancer Screening Colonoscopy (10 Years) 1956 Hepatitis C 1974 DTaP, Tdap and Td Vaccines ( 1 - Tdap) 12/08/1975 Mammogram Screening 1996 Zoster Vaccines (1 of 2) 2006 Dexa Scan (General) 2021 Pneumococcal Vaccine: 65+ Ye ars (1 of 1 - PCV) 2021 COVID-19 Vaccine ( - 2023-2 5 season) 2023 Influenza Adult (#1) 2023 RSV Immunization or 60+ Years (1 - 1-dose 75+ series) 12/08/2031 Meningococcal B Vaccine Aged Out No l onger eligible based on patient's age to complete this topic Meningococcal Vaccine Aged Out No fariba herminio eligible based on patient's age to complete this topic RSV Immunizations Under 20 Months Aged Out No longer eligible based on patient's age to complete this topic
--- OUTSIDE RECORDS SUMMARY | 2024-04-19 08:00 | XMS_ITS | Referral Summary ---
Author Organization [place] [id number] [facility] Address [address] [place] [address] Care Team Providers Care Linseed Oil Temperer Name Role Phone Pasha Mitchell MD Unavailable [phone] Alex Licea DO Primary Care Provider [phone] Allergies No known active allergies Medications zinc [...] Stress incontinence, female 01/19/2023 Urgency incontinence 01/19/2023 Social History Tobacco Use Types Packs/Day Years [...] Orientation Straight 06/20/2023 5: 33 AM CDT Last Filed Vital Signs Vital Sign Reading Time Taken Comments Blood Pressure 126/67 02/15/2023 4:35 PM DOUBLE END PRODUCTION GRINDER Pulse 69 02/15/2023 4:35 PM DOUBLE END PRODUCTION GRINDER Temperature 36 C (96.8 F) 02/15/2023 2:38 PM DOUBLE END PRODUCTION GRINDER Respiratory Rate 12 02/15/2023 3:10 PM DOUBLE END PRODUCTION GRINDER Oxygen Saturation 95% 02/15/2023 4:35 PM DOUBLE END PRODUCTION GRINDER Inhaled Oxygen Concentration - - Weight 85.2 kg (187 lb 13.3 oz) 02/15/2023 8:36 AM DOUBLE END PRODUCTION GRINDER Height 157.5 cm (5' 2 ) 02/15/2023 8:36 AM DOUBLE END PRODUCTION GRINDER Body Mass Index 34.35 02/15/2023 8:36 AM DOUBLE END PRODUCTION GRINDER Plan of Treatment Not on file Medical Devices Implanted Type Area Tool And Equipment Rental Clerk Device Identifier Shelf Expiration Date Model / Serial / Lot Screw Screw Bilateral: Foot Description:Bilateral bunion surgery Wires Bilateral: Foot Description:Bunion surgery [employer] Alberto Upsylon 35.4cm Elongation Profile Lightweight Large Pore Low [id number] - [id number] Implanted:Qty: 1 on 02/15/2023 by Getachew Musa MD at [facility] N/A: Pelvis [employer] Alberto 10/04/2025 [id number] / / [id number] [employer] Sling Urinary Incontinence Female Stress Short Desara Blue Julienne-Ds01bs - [id number] Implanted:Qty: 1 on 02/15/2023 by Getachew Musa MD at [facility] N/A: Pelvis [employer] [id number]-DS01B S [...] age 40, based on guidelines of the [place] [employer] (ACR Practice Parameter for the Performance of Screening and Diagnostic Mammography) and [place] [employer]nec[employer]. For women [...] Most Recently Relevant to Health Maintenance Insurance [facility] Advance Directives For more information, please contact: [phone] Documents on File Type Date Recorded Patient Pulley Mortiser Operator Expl anation ADVANCE DIRECTIVE 09/08/2017 12:00 AM POWER OF ENGINEERING DESIGN MANAGER FINANCIAL/MEDICAL Care Teams Linseed Oil Temperer Relationship Specialty Start Date End Date Alex Licea DO [address] [place] [id number] PCP - General Internal Medicine 05/17/22 Pasha Mitchell MD [address] [place] [address] Consulting Physician Surgery 01/21/22
[2024-04-19 19:18] LABS: Basophils Percent Auto 0.6 % (0.2-1.2); Eosinophils Absolute Auto 0.4 K/mm3 (0-0.3); Hematocrit 41.8 % (37.0-47.0); Hemoglobin 13.5 g/dL (12.0-15.0); Immature Granulocyte Absolute 0.07 K/mm3 (0.00-0.031); Lymphocytes Absolute Auto 2.18 K/mm3 (0.9-3.2); Lymphocytes Percent Auto 31.3 % (18.3-44.2); Mean Corpuscular HGB Conc 32.3 g/dl (32-36); Mean Corpuscular Hemoglobin 29.6 pg (26-34); Mean Corpuscular Volume 91.7 fl (80-100); Mean Platelet Volume 10.3 fl (7.4-10.4); Monocytes Absolute Auto 0.6 K/mm3 (0.1-0.6); Neutrophils Absolute Auto 3.7 K/mm3 (1.3-6.7); Neutrophils Percent Auto 53.1 % (45.5-73.1); Platelet Count Result 305 k/mm3 (150-375); Red Blood Count 4.56 M/mm3 (4.2-5.4); Red Cell Distribution Width 12.1 % (11.5-14.5)
[2024-04-19 19:37] LABS: Alanine Aminotransferase 23 U/L (6-35); Albumin Level 4.2 g/dL (3.5-5.1); Alkaline Phosphatase 60 U/L (38-126); Anion Gap 9 mmol/L (4-12); Aspartate Amino Transferase 25 U/L (14-36); Bilirubin,Total 0.6 mg/dL (0.2-1.3); Blood Urea Nitrogen 15 mg/dL (7-17); Calcium 9.7 mg/dL (8.4-10.2); Carbon Dioxide 29 mmol/L (22-30); Chloride 103 mmol/L (98-107); Cholesterol 295 mg/dL (0-200); Estimated Glomerular Filt Rate > 60; Glucose 80 mg/dL (65-110); HDL Direct 50 mg/dL; Potassium 4.1 mmol/L (3.4-5.0); Sodium 141 mmol/L (137-145); Triglycerides 280 mg/dL (<150)
[2024-04-19 19:48] LABS: LDL Cholesterol Direct 197 mg/dL
[2024-04-19 20:09] LABS: Vitamin D 25 Hydroxy 43.5 ng/mL
[2024-04-26 12:54] LABS: Apolipoprotein B 160 mg/dL
== END 2024-04-19 07:56 | disposition home or self-care (01) ==
LOC: ANHGOSHLAB 07:56
PROVIDERS: PCP Internal Medicine; Visit Provider Clinical Nurse Specialist
DX: E78.5 Hyperlipidemia, unspecified (principal); I10 Essential (primary) hypertension; Z13.228 Encounter for screening for other metabolic disorders; K83.8 Other specified diseases of biliary tract
CPT/HCPCS: 36415; 80053; 80061; 82172; 82306; 85025

== ENCOUNTER 2024-06-01 14:11 | Outpatient (CLI) | payer MEDICARE, SELFPAY ==
--- OUTSIDE RECORDS SUMMARY | 2024-06-01 14:18 | XMS_ITS | Referral Summary ---
Author Organization [place] [id number] [facility] Address [address] [place] [address] Care Team Providers Care Product Design Engineer Name Role Phone Pasha Mitchell MD Unavailable [phone] Alex Licea DO Primary Care Provider [phone] Allergies No known active allergies Medications zinc [...] Comments Blood Pressure 126/67 02/15/2023 4:35 PM LANDSCAPE FOREMAN Pulse 69 02/15/2023 4:35 PM LANDSCAPE FOREMAN Temperature 36 C (96.8 F) 02/15/2023 2:38 PM LANDSCAPE FOREMAN Respiratory Rate 12 02/15/2023 3:10 PM LANDSCAPE FOREMAN Oxygen Saturation 95% 02/15/2023 4:35 PM LANDSCAPE FOREMAN Inhaled Oxygen Concentration - - Weight 85.2 kg (187 lb 13.3 oz) 02/15/2023 8:36 AM LANDSCAPE FOREMAN Height 157.5 cm (5' 2 ) 02/15/2023 8:36 AM LANDSCAPE FOREMAN Body Mass Index 34.35 02/15/2023 8:36 AM LANDSCAPE FOREMAN Plan of Treatment Not on file Medical Devices Implanted Type Area Utility Service Worker Device Identifier Shelf Expiration Date Model / Serial / Lot Screw Screw Bilateral: Foot Description:Bilateral bunion surgery Wires Bilateral: Foot Description:Bunion surgery [employer] Alberto Upsylon 35.4cm Elongation Profile Lightweight Large Pore Low [id number] - [id number] Implanted:Qty: 1 on 02/15/2023 by Getachew Musa MD at [facility] N/A: Pelvis [employer] Alberto 10/04/2025 [id number] / / [id number] [employer] Sling Urinary Incontinence Female Stress Short Desara Blue Julienne-Ds01bs - [id number] Implanted:Qty: 1 on 02/15/2023 by Getachew Musa MD at [facility] N/A: Pelvis [employer] [id number] [...] age 40, based on guidelines of the [place] [employer] (ACR Practice Parameter for the Performance of Screening and Diagnostic Mammography) and [place] [employer]nec[employer]. For women [...] Hx. COMPARISONS: 05/17/2022 Diagnostic Mammogram Bilateral W Zaael 12/11/2021 Diagnostic Mammogram Left W Azael 05/07/2021 [...] Most Recently Relevant to Health Maintenance Insurance [facility]ANTRA [facility] [employer] [facility] Advance Directives For more information, please contact: [phone] Documents on File Type Date Recorded Patient Toy Designer Expl anation ADVANCE DIRECTIVE 09/08/2017 12:00 AM POWER OF RANCH HAND LIVESTOCK FINANCIAL/MEDICAL Care Teams Product Design Engineer Relationship Specialty Start Date End Date Alex Licea DO [address] [place] [id number] PCP - General Internal Medicine 05/17/22 Pasha Mitchell MD [address] [place] [address] Consulting Physician Surgery 01/21/22
--- OUTSIDE RECORDS SUMMARY | 2024-06-01 14:18 | XMS_ITS | Clinical Summary ---
Author Organization [facility] Address [address] [place] [address] Care Team Providers Care Audiology Director Name Role Phone Alex Licea DO Primary Care Provider [phone] Encounters Date Type Department Care Team Description 05/03/2024 8:07 AM AEROSPACE TECHNICIAN - 05/03/2024 11:59 PM AEROSPACE TECHNICIAN Hospital Encounter [facility] [address] [place] [address] Humberto Rosario MD Discharge Disposition: Home or Self Care (Routine Discharge) 05/03/2024 Travel from Last 3 Months Social History Tobacco Use Types Packs/Day Years Used Date Smoking Tobacco: Never Assessed Comments Unknown Sex and Gender Information Value Date Recorded Sex Assigned at Female 04/26/2024 4:23 PM AEROSPACE TECHNICIAN Legal Sex Female 8:22 PM CDT Gender Identity Not on file Sexual Orientation Not on file Plan of Treatment Health Maintenance Due Date Last Done Comments Colorectal Cancer Screening Colonoscopy (10 Years) 1956 Hepatitis C 1974 Zoster Vaccines (1 of 2) 2006 Annual Medicare Wellness Visit 2021 Dexa Scan (General) 2021 Pneumococcal Vaccine: 65+ Years (1 of 1 - PCV) 2021 COVID-19 Vaccine (2 - season) 2023 06/13/2020 Influenza Adult (#1) 2023 Mammogram Screening 06/16/2025 06/17/2023, 05/17/2022, 12/11/2021, Additional history exists DTaP, Tdap and Td Vaccines (2 - Td or Tdap) 10/22/2025 10/23/2015 RSV Immunization or 60+ Years (1 - 1-dose 75+ series) 12/08/2031 Meningococcal B Vaccine Aged Out No l onger eligible based on patient's age to complete this topic Meningococcal Vaccine Aged Out No fariba herminio eligible based on patient's age to complete this topic RSV Immunizations Under 20 Months Aged Out No longer eligible based on patient's age to complete this topic Procedures Procedure Name Priority Date/Time Associated Diagnosis Comments CT HEART SCREEN CALCIUM SCORE PROMO Routine 05/03/2024 8:33 AM AEROSPACE TECHNICIAN Screening for heart disease from Last 3 Months Results * CT HEART SCREEN CALCIUM SCORE PROMO (05/03/2024 8:33 AM AEROSPACE TECHNICIAN) Anatomical Region Laterality Modality Chest Computed Tomogra phy 05/03/2024 9:53 AM AEROSPACE TECHNICIAN Impressions 05/03/2024 9:54 AM AEROSPACE TECHNICIAN IMPRESSION: Total Cardiac Calcium Score: 79.8 Mild plaque, moderate risk, low likelihood of significant stenosis (<50%). Referred By: HUMBERTO ROSARIO Interpreted By: Catarino Patrick MD, 05/03/2024 9:53 AM Narrative 05/03/2024 9:54 AM AEROSPACE TECHNICIAN [address] [address] EXAMINATION: Multislice Helical CT Coronary Calcium Scoring EXAM DATE/TIME: 05/03/2024 8:15 AM REASON FOR EXAM: SCREENING FOR HEART DISEASE COMPARISON: None available TECHNIQUE: Multislice helical CT images of the proximal coronary arteries with a computer generated calcification score. Automated exposure control was utilized for dose reduction. FINDINGS: Calcium scoring: Left main: 0 LAD: 79.8 Circumflex: 0 Right coronary: 0 Total Score: 79.8 Extra coronary findings: No suspicious pulmonary nodules or mediastinal adenopathy. Scattered calcified granulomatous disease with calcified left hilar lymph nodes. Mild bibasilar subsegmental atelectasis. Calcifications of the mitral annulus. Calcium score guidelines: Total Score* Calcium Plaque Sewaren *Risk *Probability of significant CAD 0 No Plaque Very Low Very unlikely 1-10 Minimal Plaque Low Unlikely 11-100 Mild Plaque Moderate Low likelihood of significant stenosis <50% 101-400 Moderate Plaque Moderately High Moderate likelihood of significant stenosis (>50%) Over 400 Extensive Plaque High High likelihood of significant stenosis (>50%) The amount of coronary artery calcification correlates with the severity of coronary atherosclerosis and the probability of future significant event. Calcification is not site specific for stenosis and does not identify non-calcified atherosclerotic plaque, but rather indicates the extent of atherosclerosis in the coronary arteries overall. The score may be used as an indicator for risk factor modification or additional cardiac testing. Significant change in calcium score over time may be indicative of subsequent disease development or useful as a benchmark to assess preventative programs. Procedure Note Catarino Patrick MD - 05/03/[address] [address] EXAMINATION: Multislice Helical CT Coronary Calcium Scoring EXAM DATE/TIME: 05/03/2024 8:15 AM REASON FOR EXAM: SCREENING FOR HEART DISEASE COMPARISON: None available TECHNIQUE: Multislice helical CT images of the proximal coronary arterieswith a computer generated calcification score. Automated exposure controlwas utilized for dose reduction. FINDINGS: Calcium scoring: Left main: 0 LAD: 79.8 Circumflex: 0 Right coronary: 0 Total Score: 79.8 Extra coronary findings: No suspicious pulmonary nodules or mediastinaladenopathy. Scattered calcified granulomatous disease with calcified lefthilar lymph nodes. Mild bibasilar subsegmental atelectasis.Calcifications of the mitral annulus. Calcium score guidelines: Total Score* Calcium Plaque Sewaren *Risk *Probability ofsignificant CAD 0 No Plaque Very LowVery unlikely 1-10 Minimal Plaque LowUnlikely 11-100 Mild Plaque ModerateLow likelihood of significant stenosis <50% 101-400 Moderate Plaque Moderately HighModerate likelihood of significant stenosis (>50%) Over 400 Extensive Plaque HighHigh likelihood of significant stenosis (>50%) The amount of coronary artery calcification correlates with the severityof coronary atherosclerosis and the probability of future significantevent. Calcification is not site specific for stenosis and does not identify non- calcifiedatherosclerotic plaque, but rather indicates the extent of atherosclerosisin the coronary arteries overall. The score may be used as an indicator for risk factor modification oradditional cardiac testing. Significant change in calcium score over timemay be indicative of subsequent disease development or useful as a benchmark to assess preventativeprograms. IMPRESSION: Total Cardiac Calcium Score: 79.8 Mild plaque, moderate risk, low likelihood of significant stenosis(<50%). Referred By: HUMBERTO ROSARIO Interpreted By: Catarino Patrick MD, 05/03/2024 9:53 AM us Humberto Rosario MD CT Final Res ult from Last 3 Months Insurance [employer] Care Teams Audiology Director Relationship Specialty Start Date End Date Alex Licea DO [address] [place] [address] PCP - General INTERNAL MEDICINE 04/26/24
--- OUTSIDE RECORDS SUMMARY | 2024-06-01 14:19 | XMS_ITS | Data Portability ---
Author Organization [facility], Main Office Address [address] [place] [address] Care Team Providers Care Laborer Rags Name Role Phone TYRONE LICEA Primary Care Provider TYRONE LICEA Referring Provider Assessment Encounter Date Assessment Date Assessment LastModified by Organization Details LastModified Time 01/19/2024 01/19/2024 The patient has severe primary osteoarthritis left knee joint with [id number] changes in medial compartment moderately severe changes in the patellofemoral articulation. We talked about treatment options today in detail she has been through a long course of conservative measures in the past 2 years she has had cortisone and Orthovisc injections has tried activity modification icing etc.. She continues to have significant pain that interferes with the daily activities. Today I have recommended total knee arthroplasty as she has failed other usp conservative measures, we discussed total knee arthroplasty in detail that is really why she came here today as she is tired of conservative measures. We talked about total knee arthroplasty in detail including risks benefits limitations and alternatives, the procedure itself and recovery and rehab therapy after total knee arthroplasty. She would like to proceed. We talked about who her primary care doctor is she states Dr. Licea is her doctor and he works out of [facility] she would prefer to have her knee done there. We talked about choices of different surgeons at [facility]. She states she has heard of Dr. العراقي and would like to see him. Today she was given a booklet on total knee arthroplasty. We reviewed the total knee models to give her a better understanding of the total knee implants. She would like to proceed with total knee arthroplasty left knee. We will get her set up to see Dr. العراقي in the near future. She was also asking about some sort of pain relief for her left knee. She would rather avoid oral anti-inflammatory medication. I did offer to aspirate her knee and inject it with cortisone and she wanted to proceed. Therefore under sterile conditions I injected 3 cc of 0.5% bupivacaine subcutaneously in the superior lateral portion of the left knee. Once things were numbed up I proceeded to aspirate the left knee joint with an 18 gauge needle and a large syringe. I was able to obtain about 50 cc of blood-tinged clear knee joint synovial fluid. No evidence of cloudiness pus or infection was noted today. She immediately stated that she was already getting relief from the decompression of the effusion. I then swapped syringes and injected 4 cc of 0.5% bupivacaine and 20 mg of Kenalog into the knee joint through the 18 gauge needle. The patient tolerated the procedure well. After the procedure she stood up and walked in the knee and stated she had quite a bit of improvement in her discomfort and was quite pleased with results. She was able to bend and straighten her knee much more comfort and ease. She is aware that she will need to wait 3 months before she could proceed with total knee arthroplasty. She states she has no plans for doing the surgery until after the of the year anyway. If she has any problems difficulties or questions she is instructed to call. She voiced understanding and agreed with the above plan. [email or web address] Not available 01/19/2024 14:31:45 Plan of Treatment Reminders Order Date Submit Date Provider Last Modified By Organization Details Last Modified Time Details Appointments None recorded. Lab None recorded. Referral None recorded. Procedures injection/a spiration joint/bursa (PROC) 2023 [email or web address] In-Office Order, Internal Use Only DO Not Attach Compendium DO Not Attach Compendium, Do Not Delete/merge, [id number] 13:51:00 Surgeries None recorded. Imaging XR, knee 2023 [email or web address] [facility] [place], [facility], [place], [address], 14:55:29 Medication Orders bupivacaine HCl 0.5 % (5 mg/mL) injection solution 2023 [email or web address] [facility] [id number] In [facility], [address], [place], [address], 14:55:29 Kenalog 10 mg/mL suspension for injection 2023 024 [email or web address] [facility] [address] In [facility], [address], [place], [address], 14:55:29 Patient TargetsNo targets recorded. Patient InstructionsNo instructions recorded. Reason for Referral None Reported. Results Created Date Observation Date Name Description Value Unit Range Abnormal Flag Note LastModifiedBy Organization Detail LastModifiedTime 01/19/20 24 XR, knee No observ ation record ed. [email or web address] [facility] [place] [address], [place], [address], 01/19/2024 14:29:19 Result Notes None recorded. Problems Name Problem SNOMED Code Status Onset Date Resolution Date Notes Provider Name and Address Organization Details Recorded Time Pain of left knee joint 5264274231140 07 Active 2023 Dona Flores CNA [facility] 13:12:31 Osteoarthri tis of left knee joint 8122737103492 09 Active 2023 JUSTICE Ferguson [address] [facility], [facility] [address], [place], [address] [facility] [employer] [facility] 14:28:23 Problem Notes None recorded. Procedures Surgical History Date Name Laterality Status Provider Name and Address Organization Details Recorded Time cholecystectomy completed Dona portillo CNA [facility] 01/19/2024 13:19:40 Bladder completed Dona Flores CNA [facility] 01/19/2024 13:19:55 Imaging Results Imaging Date Name Status LastModified by Organiz ation Details LastModified Time 01/19/2024 XR, knee completed [email or web address] [facility] [place] [address], [place], [address], 01/19/2024 14:29:19 Procedure Notes None recorded. Medical Equipment None Reported. Allergies No known drug allergies Medications Name Sig Start Date Stop Date Status Note LastModified by Organization Details LastModified Time losartan 50 mg tablet TAKE 1 TABLET BY MOUTH DAILY 01/18 completed Not Available Not Available Not Available bupivacaine HCl 0.5 % (5 mg/mL) injection solution Take 35 mg by injection route. 2023 active Not Available Not Available Not Avai lable Kenalog 10 mg/mL suspension for injection Take 20 mg by injection route. 2023 active [facility]: 0003- [phone]- [phone] Not Available Not Available Not Available docusate sodium 100 mg capsule TAKE 1 CAPSULE BY MOUTH TWICE DAILY FOR CONSTIPAT ION 01/18 completed Not Available Not Available Not Available acetaminoph en 300 mg-codeine 60 mg tablet TAKE 1 TABLET BY MOUTH EVERY 4 HOURS NEEDED FOR PAIN 01/18 completed Not Available Not Available Not Available losartan 100 mg tablet TAKE 1 TABLET BY MOUTH DAILY active Not Available Not Available No t Available hydrochloro thiazide 12.5 mg tablet TAKE 1 TABLET BY MOUTH EVERY DAY 01/18 completed Not Available Not Available Not Available Vitals Date Recorded Body height Body mass index (BMI) Body weight Provider Name and Address Organization Details Last Updated DateTime 01/19/2024 152.4 cm 36.1 kg/m2 17192.59 g Dona Flores CNA [facility] 01/19/2024 13:17:45 Social History Question Answer Notes LastModified by Organizat ion Details LastModified Time Tobacco Smoking Status Never Smoker Dona Flores CNA null, [facility] 01/19/2024 13:19:17 What Is Your Level Of Alcohol Consumption? Occasional [email or web address] Information not available 01/19/2024 Sex: Unknown Functional Status None recorded. Mental Status None recorded. Family History Relationship Description Onset Age of this Age Resolved Age Notes LastModified by Organization Details LastModified Time Father Heart disease [email or web address] Not available 2023 13:18:39 Father Hypertensive disorder [email or web address] Not available 2023 13:18:53 Father Diabetes mellitus [email or web address] Not available 2023 13:19:01 Father Kidney disease [email or web address] Not available 2023 13:19:08 Mother Hypertensive disorder [email or web address] Not available 2023 13:18:53 Medical History No medical history recorded. Gynecological HistoryNo gynecological history recorded. Obstetrics History GPAL:G 0 P 0 0 0 0 Past Encounters Encounter ID Performer Location Encounter Start Date Encounter Closed Date Diagnosis/Indication Diagnosis SNOMED-CT Code Diagnosis ICD10 Code Diagnosis Note [id number] JUSTICE Ferguson [facility] [place] [address] [place] [address] 01/19/2024 13:02:03 01/19/2024 14:05:35 Pain of left knee joint 5520685812 03811 M25.562 Osteoarthr itis of left knee joint 6112527769 16494 M17.12 Health Concerns Section Related Observation LastModified by Organization Detai ls LastModified Time None Recorded Concern Status LastModified by Organization Details LastModified Time None Recorded Advance Directives Directive None Recorded Payers Encounter Date Sequence Insurance Name Policy Number Policy Crum Covered Member ID Crum Member ID Guarantor Name 01/19/2024 1 [employer] (MEDICARE REPLACEMENT PPO) [id number] Mckenzie Gaston [id number] Mckenzie Gaston Notes Date Note Type Note Provider Name and Address Organization Details Recorded Time 01/19/2024 text/html The patient is a 68-year-old female who presents with a more than 2 year history of left knee pain. She denies any specific trauma or injury to the knee recently or previously in her younger days. She is not sure why her left knee started bothering her. She has been treated previously with a shot of cortisone in December of 2021 followed by Orthovisc in November of 2022 and again in July of this year. She states each time she really did not get any significant or long-term relief from any of the injections. She was told she had some osteoarthritis in the knee but it has been more than a year since her last x-rays. This were done elsewhere by a chiropractor I believe from her history. She states she has aching pain that limits her daily activities if she sits for awhile the knee does not bother her when she is tries to eat I have him get going it really bothers her a lot she has a hard time standing from a sitting position she states when she gets moving around the knee does feel a little better. It will throb and ache about a 6 on a scale of 1-10 on the pain scale. She also reports swelling in the left knee denies any fevers chills night sweats no erythema heat or other signs of infection. She does note that she has limitation of motion she lacks 7-10 degrees of extension on the left compared to the right fully flexes but has pain with extremes of motion. At times she walks with a significant limp particularly when she gets up and gets going with start-up pain. She does not take any oral anti-inflammatory medication states she would like to stay away from that as she is afraid of the side effects or long-term consequences with possible effect on her stomach or kidneys. She states her only health issue is well controlled hypertension currently she is on losartan 100 mg daily. She is quite active states her pain we will limit her activities she likes to bowl and states she has a hard time doing that because of her knee pain. She also likes to go hiking and walking would like to get back to those activities she is tired of living with her left knee pain she comes in today for initial evaluation treatment here. A new past medical history sheet was reviewed and signed on the intake sheet of today's date drug allergies current medications family social history previous surgical history 10 point review of systems was reviewed and discussed in detail today with the patient. JUSTICE Ferguson [address] [facility], [facility] [address], [place], [address], [facility] 01/19/2024 14:31:54 OBGyn Episode No OBEpisode recorded.
--- OUTSIDE RECORDS SUMMARY | 2024-06-01 14:19 | XMS_ITS | Clinical Summary ---
Author Organization [place] [id number] [facility] Address [address] [place] [address] Care Team Providers Care Vice President Of Operations Name Role Phone Pasha Mitchell MD Unavailable [phone] Alex Licea DO Primary Care Provider [phone] Allergies No known active allergies Medications zinc [...] Comments Blood Pressure 126/67 02/15/2023 4:35 PM STRAINER TENDER Pulse 69 02/15/2023 4:35 PM STRAINER TENDER Temperature 36 C (96.8 F) 02/15/2023 2:38 PM STRAINER TENDER Respiratory Rate 12 02/15/2023 3:10 PM STRAINER TENDER Oxygen Saturation 95% 02/15/2023 4:35 PM STRAINER TENDER Inhaled Oxygen Concentration - - Weight 85.2 kg (187 lb 13.3 oz) 02/15/2023 8:36 AM STRAINER TENDER Height 157.5 cm (5' 2 ) 02/15/2023 8:36 AM STRAINER TENDER Body Mass Index 34.35 02/15/2023 8:36 AM STRAINER TENDER Plan of Treatment Health Maintenance Due Date Last Done Comments Colon Cancer Screening-Colonoscopy 1955 Depression Screening 1955 Hepatitis C Screening 1955 Osteoporosis Screening-Bone Density Scan 1956 Hepatitis B Screening 1974 Pneumococcal vaccine 65+ (1 of 1 - PCV) 2006 Zoster Vaccine (1 of 2) 2006 Well Visit 65+ 2021 Covid-19 Vaccine (2 - 2023-2 5 season) 2023 06/13/2020 Influenza Vaccine (#1) 2023 Fall Risk Assessment 02/16/2024 02/15/2023 Breast Cancer Screening-Mammogram 06/16/2024 06/17/2023, 05/17/2022, 05/07/2021, Additional history exists DTaP/Tdap/Td Vaccine (2 - Td or Tdap) 10/22/2025 10/23/2015 Medical Devices Implanted Type Area Pipe Organ Mechanic Apprentice Device Identifier Shelf Expiration Date Model / Serial / Lot Screw Screw Bilateral: Foot Description:Bilateral bunion surgery Wires Bilateral: Foot Description:Bunion surgery Intro[employer] Alberto Upsylon 35.4cm Elongation Profile Lightweight Large Pore Low [id number] - [id number] Implanted:Qty: 1 on 02/15/2023 by Getachew Musa MD at [facility] N/A: Pelvis [employer] Alberto 10/04/2025 [id number] / / [id number] [employer] Sling Urinary Incontinence Female Stress Short Desara Blue Julienne-[id number] - [id number] Implanted:Qty: 1 on 02/15/2023 by Getachew Musa MD at [facility] N/A: Pelvis [employer] [id number] S [...] age 40, based on guidelines of the [employer] (ACR Practice Parameter for the Performance of Screening and Diagnostic Mammography) and [employer]etric[employer]. For women [...] Recently Relevant to Health Maintenance Insurance AETNA [facility] Advance Directives For more information, please contact: [phone] Documents on File Type Date Recorded Patient Consultant Rn Expl anation ADVANCE DIRECTIVE 09/08/2017 12:00 AM POWER OF SUPERVISOR PAPER COATING FINANCIAL/MEDICAL Care Teams Vice President Of Operations Relationship Specialty Start Date End Date Alex Licea DO [address] [address] PCP - General Internal Medicine 05/17/22 Pasha Mitchell MD [address] [address] Consulting Physician Surgery 01/21/22
--- NOTE | 2024-06-01 14:36 | ECHO_ITS ---
Patient Info Name: Mckenzie Gaston Age: 68 years : 1955 Gender: Female Ht: 60 in Wt: 185 lbs BSA: 1.93 m2 HR: 70 bpm BP: 158 / 109 mmHg Technical Quality: Good Exam Date: 06/01/2024 2:45 PM Exam Location: Echo Lab Patient Status: Outpatient Admit Date: 06/01/2024 Staff Ordering Physician: Montse Guy Hourly Sign Language Interpreter: Maral Lowry RDCS Attending Provider: Montse Guy Referring Physician: Malena WONG; Exam Type: CA echo doppler color flow Study Info Indications I10 - Essential (primary) hypertension Complete two-dimensional, color flow and Doppler transthoracic echocardiogram is performed. Summary 1. Complete two-dimensional, color flow and Doppler transthoracic echocardiogram is performed. 2. Left ventricular chamber dimension is normal. 3. Left ventricular systolic function is normal, estimated at 60-65%. 4. There is mild concentric increased left ventricular wall thickness. 5. The left ventricular diastolic function is abnormal. 6. E/e' 11 is mildly elevated. 7. Left atrial chamber dimension is mildly enlarged. 8. The mitral valve has mildly calcified annulus. 9. There is trace mitral valve regurgitation. 10. There is trace tricuspid valve regurgitation. 11. No pulmonary hypertension, estimated pulmonary arterial systolic pressure is 29 mmHg. Left Ventricle E/e' 11 is mildly elevated. Left ventricular chamber dimension is normal. Left ventricular systolic function is normal, estimated at 60-65%. There is mild concentric increased left ventricular wall thickness. The left ventricular diastolic function is abnormal. Right Ventricle Right ventricular systolic function is normal and with normal TAPSE 1.9 cm. Right ventricular chamber dimension is normal. Left Atria Left atrial chamber dimension is mildly enlarged. Right Atria Right atrial chamber dimension is normal. Aortic Valve The aortic valve is trileaflet. There is no aortic valve stenosis. There is no aortic valve regurgitation. Pulmonic Valve There is no pulmonic regurgitation. Mitral Valve The mitral valve has mildly calcified annulus. There is no mitral valve stenosis. There is trace mitral valve regurgitation. Tricuspid Valve There is trace tricuspid valve regurgitation. No pulmonary hypertension, estimated pulmonary arterial systolic pressure is 29 mmHg. Pericardium/Pleural There is no pericardial effusion. Inferior Vena Cava Normal inferior vena cava with >50% collapse upon inspiration consistent with normal right atrial pressure, 5 mmHg. Left Ventricular Outflow Tract Name Value Normal LVOT 2D LVOT Diameter 1.8 cm LVOT Doppler LVOT Peak Gradient 5 mmHg LVOT Mean Gradient 3 mmHg LVOT VTI 26 cm LVOT VTI/AV VTI Ratio 0.9 LVOT Stroke Volume 67 ml LVOT CO 12.5 l/min LVOT CI 6.5 l/min/m2 Pulmonic Valve Name Value Normal PV Doppler PV Peak Gradient 3 mmHg Mitral Valve Name Value Normal MV Doppler MV Decel [place] 471 cm/s2 MV PHT 61 ms MV Area (PHT) 3.6 cm2 4.0-5.0 MV Diastolic Function MV E Peak Velocity 99 cm/s MV A Peak Velocity 99 cm/s MV E/A 1.0 MV Decel Time 210 ms MV Annular TDI MV E/e' (Septal) 12.3 <=8.0 MV E/e' (Lateral) 10.0 <=8.0 MV E/e' (Average) 11.2 Tricuspid Valve Name Value Normal TV Regurgitation Doppler TR Peak Velocity 246 cm/s TR Peak Gradient 24 mmHg Estimated PAP/RSVP RA Pressure 5 mmHg <=5 PA Systolic Pressure 29 mmHg <36 RV Systolic Pressure 29 mmHg <36 Aorta Name Value Normal Ascending Aorta Ao Root Diameter (MM) 3.0 cm Ao Root Diam Index (MM) 1.6 cm/m2 Aortic Valve Name Value Normal AV Doppler AV Peak Velocity 129 cm/s AV Peak Gradient 7 mmHg AV Mean Gradient 3 mmHg AV VTI 27 cm AV Area (Cont Eq VTI) 2.5 cm2 >=3.0 AV Area (Cont Eq Tee) 2.3 cm2 AV Regurgitation 2D LVOT Area 2.6 cm2 Ventricles Name Value Normal LV Dimensions 2D/MM IVS Diastolic Thickness (2D) 0.8 cm 0.6-1.0 LVID Diastole (2D) 4.7 cm 3.8-5.2 LVIW Diastolic Thickness (2D) 0.7 cm 0.6-0.9 LVID Systole (2D) 2.8 cm 2.2-3.5 LVOT Diameter 1.8 cm LV Mass (2D Cubed) 113.29 g 67.00-162.00 LV Mass Index (2D Cubed) 59 g/m2 43-95 Relative Wall Thickness (2D) 0.29 LV Fractional Shortening/Ejection Fraction 2D/MM LV Fractional Shortening (2D) 40 % 27-45 LV EF (2D Teicholz) 70 % 54-74 LV Diastolic Volume (4C MOD) 87 ml LV EF (4C MOD) 52 % LV Diastolic Volume (2C MOD) 71 ml LV EF (2C MOD) 56 % LV Diastolic Volume (BP MOD) 82 ml 46-106 LV Diastolic Volume Index (BP MOD) 42 ml/m2 29-61 LV Systolic Volume (BP MOD) 36 ml 14-42 LV Systolic Volume Index (BP MOD) 19 ml/m2 8-24 LV EF (BP MOD) 56 % 54-74 LV Diastolic Length (4C) 7.8 cm LV Systolic Length (4C) 6.4 cm LV Stroke Volume (4C MOD) 46 ml Atria Name Value Normal LA Dimensions LA Dimension (MM) 3.7 cm 2.7-3.8 LA Volume (4C A-L) 39 ml LA Volume (BP A-L) 42 ml RA Dimensions RA Area (4C) 13.8 cm2 <=18.0 Report Signatures
== END 2024-06-01 14:12 | disposition home or self-care (01) ==
PROVIDERS: PCP Internal Medicine; Visit Provider Clinical Nurse Specialist
DX: I10 Essential (primary) hypertension (principal)
CPT/HCPCS: 93306

== ENCOUNTER 2024-06-07 11:46 | Outpatient (CLI) | payer MEDICARE, SELFPAY ==
--- OUTSIDE RECORDS SUMMARY | 2024-06-07 12:28 | XMS_ITS | Referral Summary ---
Author Organization [place] [address] Address [address] [place] [address] Care Team Providers Care Cattle Sorter Name Role Phone Pasha Mitchell MD Unavailable [phone] Alex Licea DO Primary Care Provider [phone] Allergies No known active allergies Medications zinc [...] Comments Blood Pressure 126/67 02/15/2023 4:35 PM WRAP TURNER Pulse 69 02/15/2023 4:35 PM WRAP TURNER Temperature 36 C (96.8 F) 02/15/2023 2:38 PM WRAP TURNER Respiratory Rate 12 02/15/2023 3:10 PM WRAP TURNER Oxygen Saturation 95% 02/15/2023 4:35 PM WRAP TURNER Inhaled Oxygen Concentration - - Weight 85.2 kg (187 lb 13.3 oz) 02/15/2023 8:36 AM WRAP TURNER Height 157.5 cm (5' 2 ) 02/15/2023 8:36 AM WRAP TURNER Body Mass Index 34.35 02/15/2023 8:36 AM WRAP TURNER Plan of Treatment Not on file Medical Devices Implanted Type Area Briquette Maker Device Identifier Shelf Expiration Date Model / Serial / Lot Screw Screw Bilateral: Foot Description:Bilateral bunion surgery Wires Bilateral: Foot Description:Bunion surgery [employer] Alberto Upsylon 35.4cm Elongation Profile Lightweight Large Pore Low [id number] - [id number] Implanted:Qty: 1 on 02/15/2023 by Getachew Musa MD at [facility] N/A: Pelvis [employer] Alberto 10/04/2025 [id number] / / [id number] [employer] Sling Urinary Incontinence Female Stress Short Desara Blue Julienne-Ds01bs - [id number] Implanted:Qty: 1 on 02/15/2023 by Getachew Musa MD at [facility] N/A: Pelvis [employer] [id number]-[id number] [...] age 40, based on guidelines of the [place] College of [employer] (ACR Practice Parameter for the Performance of Screening and Diagnostic Mammography) and [place] College of Obstetricians and Gynecologists. For women [...] Most Recently Relevant to Health Maintenance Insurance [facility] ADVANTRA [facility] AETNA [facility] Advance Directives For more information, please contact: [phone] Documents on File Type Date Recorded Patient Yard Switcher Expl anation ADVANCE DIRECTIVE 09/08/2017 12:00 AM POWER OF BILLIARD PLAYER FINANCIAL/MEDICAL Care Teams Cattle Sorter Relationship Specialty Start Date End Date Alex Licea DO [address] [place] [id number] PCP - General Internal Medicine 05/17/22 Pasha Mitchell MD [address] [place] [id number] Consulting Physician Surgery 01/21/22
--- OUTSIDE RECORDS SUMMARY | 2024-06-07 12:28 | XMS_ITS | Clinical Summary ---
Author Organization [facility] Address [address] [place] [address] Care Team Providers Care District Manager Primary Care Sales Name Role Phone Alex Licea DO Primary Care Provider [phone] Encounters Date Type Department Care Team Description 05/03/2024 8:07 AM SLUDGE MILL OPERATOR - 05/03/2024 11:59 PM SLUDGE MILL OPERATOR Hospital Encounter [facility] [address] [place] [address] Humberto Rosario MD Discharge Disposition: Home or Self Care (Routine Discharge) 05/03/2024 Travel from Last 3 Months Social History Tobacco Use Types Packs/Day Years Used Date Smoking Tobacco: Never Assessed Comments Unknown Sex and Gender Information Value Date Recorded Sex Assigned at Female 04/26/2024 4:23 PM SLUDGE MILL OPERATOR Legal Sex Female 8:22 PM CDT Gender [...] CALCIUM SCORE PROMO Routine 05/03/2024 8:33 AM SLUDGE MILL OPERATOR Screening for heart disease from Last 3 Months Results * CT HEART SCREEN CALCIUM SCORE PROMO (05/03/2024 8:33 AM SLUDGE MILL OPERATOR) Anatomical Region Laterality Modality Chest Computed Tomogra phy 05/03/2024 9:53 AM SLUDGE MILL OPERATOR Impressions 05/03/2024 9:54 AM SLUDGE MILL OPERATOR IMPRESSION: Total Cardiac Calcium Score: 79.8 Mild plaque, moderate risk, low likelihood of significant stenosis (<50%). Referred By: HUMBERTO ROSARIO Interpreted By: Catarino Patrick MD, 05/03/2024 9:53 AM Narrative 05/03/2024 9:54 AM SLUDGE MILL OPERATOR [address] [address] EXAMINATION: [place] Helical CT Coronary Calcium Scoring [...] Calcium score guidelines: Total Score* Calcium Plaque [place] *Risk *Probability of significant CAD 0 No [...] Procedure Note Catarino Patrick MD - 05/03/[address] [address] EXAMINATION: [place] Helical CT Coronary Calcium Scoring [...] Calcium score guidelines: Total Score* Calcium Plaque [place] *Risk *Probability ofsignificant CAD 0 No Plaque [...] Last 3 Months Insurance AETNA Care Teams District Manager Primary Care Sales Relationship Specialty Start Date End Date Alex Licea DO [address] [place] [address] PCP - General INTERNAL MEDICINE 04/26/24
--- OUTSIDE RECORDS SUMMARY | 2024-06-07 12:28 | XMS_ITS | Clinical Summary ---
Author Organization [place] [address] [facility] Address [address] [place] [address] Care Team Providers Care Receiving Lead Name Role Phone Pasha Mitchell MD Unavailable [phone] Alex Licea DO Primary Care Provider [phone] Allergies No known active allergies Medications zinc [...] Comments Blood Pressure 126/67 02/15/2023 4:35 PM OUTREACH LIBRARIAN Pulse 69 02/15/2023 4:35 PM OUTREACH LIBRARIAN Temperature 36 C (96.8 F) 02/15/2023 2:38 PM OUTREACH LIBRARIAN Respiratory Rate 12 02/15/2023 3:10 PM OUTREACH LIBRARIAN Oxygen Saturation 95% 02/15/2023 4:35 PM OUTREACH LIBRARIAN Inhaled Oxygen Concentration - - Weight 85.2 kg (187 lb 13.3 oz) 02/15/2023 8:36 AM OUTREACH LIBRARIAN Height 157.5 cm (5' 2 ) 02/15/2023 8:36 AM OUTREACH LIBRARIAN Body Mass Index 34.35 02/15/2023 8:36 AM OUTREACH LIBRARIAN Plan of Treatment Health Maintenance Due Date [...] 10/22/2025 10/23/2015 Medical Devices Implanted Type Area Senior Product Development Manager Device Identifier Shelf Expiration Date Model / Serial / Lot Screw Screw Bilateral: Foot Description:Bilateral bunion surgery Wires Bilateral: Foot Description:Bunion surgery [employer] Alberto Upsylon 35.4cm Elongation Profile Lightweight Large Pore Low [id number] - [id number] Implanted:Qty: 1 on 02/15/2023 by Getachew Musa MD at [facility] N/A: Pelvis [employer] Alber[employer] 10/04/2025 [id number] / / [id number] [employer] Sling Urinary Incontinence Female Stress Short Desara Blue Julienne-Ds01bs - [id number] Implanted:Qty: 1 on 02/15/2023 by Getachew Musa MD at [facility] N/A: Pelvis [employer] [id number]-DS01B S / / Procedures [...] age 40, based on guidelines of the [place] [employer] (ACR Practice Parameter for the Performance of Screening and Diagnostic Mammography) and [place] [employer]st[employer]ians and Gynecologists. For women [...] Recently Relevant to Health Maintenance Insurance AETNA [facility] ADVANTRA [facility] ADVANTRA [facility]TRA Advance Directives For more information, please contact: [phone] Documents on File Type Date Recorded Patient Director Of Hotel Operations Expl anation ADVANCE DIRECTIVE 09/08/2017 12:00 AM POWER OF CEMENTER MACHINE JOINER FINANCIAL/MEDICAL Care Teams Receiving Lead Relationship Specialty Start Date End Date Alex Licea DO [address] [address] PCP - General Internal Medicine 05/17/22 Pasha Mitchell MD [address] [address] Consulting Physician Surgery 01/21/22
[2024-06-07 13:43] LABS: Basophils Absolute Auto 0.1 K/mm3 (0.0-0.1); Basophils Percent Auto 0.5 % (0.2-1.2); Eosinophils Absolute Auto 0.4 K/mm3 (0-0.3); Eosinophils Percent Auto 3.4 % (0-4.4); Hematocrit 41.6 % (37.0-47.0); Hemoglobin 13.6 g/dL (12.0-15.0); Immature Granulocyte Absolute 0.19 K/mm3 (0.00-0.031); Immature Granulocyte Percent A 1.7 % (0-0.5); Lymphocytes Absolute Auto 3.16 K/mm3 (0.9-3.2); Lymphocytes Percent Auto 28.6 % (18.3-44.2); Mean Corpuscular HGB Conc 32.7 g/dl (32-36); Mean Corpuscular Volume 91.6 fl (80-100); Monocytes Absolute Auto 0.9 K/mm3 (0.1-0.6); Monocytes Percent Auto 7.7 % (2.6-8.5); Neutrophils Absolute Auto 6.4 K/mm3 (1.3-6.7); Neutrophils Percent Auto 58.1 % (45.5-73.1); Platelet Count Result 323 k/mm3 (150-375); Red Blood Count 4.54 M/mm3 (4.2-5.4); White Blood Count 11.1 K/mm3 (4.5-10.0)
[2024-06-07 13:44] LABS: Urine Cotinine NEGATIVE
[2024-06-07 13:45] LABS: Hemoglobin A1C 5.4 % (<5.7)
[2024-06-07 13:49] LABS: Albumin Level 4.6 g/dL (3.5-5.1); Anion Gap 7 mmol/L (4-12); Blood Urea Nitrogen 16 mg/dL (7-17); Calcium 9.5 mg/dL (8.4-10.2); Carbon Dioxide 29 mmol/L (22-30); Chloride 103 mmol/L (98-107); Estimated Glomerular Filt Rate > 60; Glucose 93 mg/dL (65-110); Potassium 3.8 mmol/L (3.4-5.0); Sodium 139 mmol/L (137-145)
== END 2024-06-07 11:47 | disposition home or self-care (01) ==
LOC: ANHSURGERY 11:50
PROVIDERS: PCP Internal Medicine; Visit Provider Orthopaedic Surgery
DX: M17.12 Unilateral primary osteoarthritis, left knee (principal); Z01.818 Encounter for other preprocedural examination
CPT/HCPCS: 80048; 80307; 82040; 83036; 85025; 87081

== ENCOUNTER 2024-06-25 01:47 | Day surgery (SDC) | payer MEDICARE, SELFPAY ==
--- NOTE | 2024-06-07 11:58 | PC.NURSE ---
Addendum entered by Mindi Sheridan RN 06/07/24 15:37: PT SPOKE WITH PCP AND WAS STATED ON AMLODIPINE 5MG DAILY FOR HTN. SHE WILL START TODAY. PT INSTRUCTED TO TAKE WITH SIPS OF WATER ON MORNING OF SURGERY, SHE RELAYS UNDERSTANDING. Addendum entered by Mindi Sheridan RN 06/07/24 13:01: BP ELEVATED DURING PAT INTERVIEW. DENIES SYMPTOMS. READINGS RECORDED FOR PATIENT. SHE PLANS TO SEE PCP FOR BP MANAGEMENT PRIOR TO SURGERY. SHE WILL CALL WITH ANY CHANGES TO BP MEDICATION. Original Note: Report to the Outpatient Waiting Room, entrance under [facility] green [facility] at time __6:00am on date ___06/25/24____. Planned Procedure Time: ___7:30am .? Time changes happen often and if your time is changed the preop area will call you the afternoon before. - You and your visitor will be asked to self-screen and do not enter if you have any COVID symptoms. Please call surgeon if you need to reschedule. - A mask is optional within the hospital at this time. Patients may have clear liquids (water, carbonated beverages, clear teas, apple juice) until 3 hours prior to surgery (4:30AM) with a maximum of 20 ounces. - No food from midnight until time of surgery and no smoking, or chewing tobacco (or any form of nicotine). No chewing gum, candy or mints. Take only the following medications with a SIP of water on the morning of surgery: tramadol as needed for pain DO NOT STOP ANY OF YOUR OTHER PRESCRIPTION MEDICATIONS PRIOR TO SURGERY EXCEPT THE FOLLOWING Hold all vitamins and supplements for 3 days per anesthesiologist. Medications to discontinue per physician __HOLD ALL VITAMINS/SUPPLEMENTS 7 DAYS PRE-OP PER DR JONES Date to take last dose 06/17/24 Please no make-up, nail sinhala, hairspray, perfume, deodorant, or body powder the day of surgery.? No jewelry (including any body piercings) or valuables the day of surgery, leave them at home.? Please take a shower or bath the night before, or the morning of, surgery with an antibacterial soap.? Wear comfortable, loose fitting clothing.? - Jewelry must be removed prior to entering the operating room.? Rings and piercings that are not removed may be cut off. - The hospital will not accept responsibility for valuables.? - Please leave all valuables, including medications, at home the day of surgery. If you are going home after surgery, a licensed taxi driver must drive you home.? - NO public transportation without another adult if you receive anesthesia. - We recommend that an adult stay with you for 24 hours following discharge. - We also recommend that you do not drive, make important decision, drink alcoholic beverages, or take any drugs that were not prescribed by your health care provider for at least 24 hours after your discharge time. Follow any additional instructions given to you from your surgeon. Telephone instructions given to ___PATIENT and asked if any additional questions and then verbalized understanding. Patient advised to call surgeon office or pre surgery nurse liaison [phone] if any additional questions.
[2024-06-07 12:04] VITALS: BMI 35.1
[2024-06-07 12:10] VITALS: BP 182/98; PULSE 78; RESP 16; TEMP 37.4; O2SAT 99
[2024-06-07 12:15] VITALS: BP 185/103
[2024-06-07 12:45] VITALS: BP 188/97
--- NOTE | 2024-06-22 07:17 | P.HP_ITS ---
H&P: HPI History of Present Illness Date/Time: 06/22/24 07:17 Chief Complaint: Left knee DJD Narrative: 68-year-old female who presents today for a left total knee arthroplasty. Patient has advanced osteoarthritis in left knee. She has been treated this nonsurgically for last several years. Her last cortisone injection was in January of last year which helped only for a very short time. She has been avoiding anti-inflammatories because she is concerned about side effects. At this point patient's symptoms are bothering her on a daily basis. It is affecting her daily life and limiting her activities. She feels she is ready proceed with total knee arthroplasty at this point. Review of Systems Review of Systems: All systems reviewed & are unremarkable except as noted in HPI and below PMFSH Past Medical History Medical History Acute calculous cholecystitis Acute cholecystitis Essential (primary) hypertension Surgical History Surgical History Hx laparoscopic cholecystectomy 02/03/22 H/O breast surgery Ductal incision with Dr. Mitchell at [facility] Family History Family History Mother Hypertension Sibling Hypertension Family history of heart disease in male family member before age 55 Father Family history of kidney disease Family history of diabetes mellitus in first degree relative Family history of heart disease in male family member before age 55 Social History Social History Social History: Caffeine-daily Smoking status: Never smoker Alcohol intake: current Drinks per week: 2 Substance use: never Substance use type: does not use Do You Feel Safe in your Home?: Yes Lack of Transportation: No Lack of Food: Never True Current Housing: I Have Housing Concerned About Future Housing: No Difficulty Paying Gas/Electric Bills: No Difficulty Paying for Meds: No Currently Unemployed: No Education: Bachelor's Degree Difficulty w/ Childcare or Family Care: No Living arrangements: with family Additional living arrangements comments: S.O. Spiritual care concerns: No Meds Home Medications and Allergies Home Medications ?Medication ?Instructions ?Recorded ?Confirmed ?Type cholecalciferol (vitamin D3) 25 25 mcg PO DAILY 04/08/23 06/15/24 History mcg (1,000 unit) capsule zinc acetate 50 mg (zinc) capsule 50 mg PO DAILY 04/08/23 06/15/24 History (Galzin) losartan 100 mg tablet 100 mg PO DAILY #90 tabs 01/06/24 06/15/24 Rx tramadol 50 mg tablet 50 mg PO BID PRN pain #30 tabs 04/26/24 06/15/24 Rx amlodipine 5 mg tablet 5 mg PO DAILY #30 tabs 06/07/24 06/15/24 Rx Allergies Allergy/AdvReac Type Severity Reaction Status Date / Time lisinopril AdvReac Mild Cough Verified 06/15/24 09:44 Exam Narrative: 68-year-old female alert pleasant. She is 5 ft 2 and 182 lb BMI is 33.3. Left knee range of motion is from 10-115 degrees. Moderately large effusion. Moderate tenderness over the medial joint line to palpation. She has normal stability in the knee. Hip range of motion is full without discomfort, negative Stinchfield maneuver. She has normal quadriceps strength in both. 2+ dorsalis pedis and posterior tibial artery pulse palpable. No edema in either lower extremity. She has no numbness or tingling in either lower extremity. Resp: Auscultation: clear to auscultation bilaterally Cardio: Rate: regular rate Rhythm: regular rhythm Assessment and Plan Assessment and plan (1) Primary osteoarthritis of left knee: Code(s): M17.12 - Unilateral primary osteoarthritis, left knee Status: Acute Assessment and Plan: 68-year-old female who has advanced osteoarthritis left knee with continued symptoms. Again at this point she feels she is ready proceed with total knee arthroplasty rather than continue nonsurgical treatment. Surgical procedures well as the risks and complications were discussed in detail all questions were answered and we will proceed. Patient's nasal swab was negative. Hemoglobin 13.6 and platelets were 323 Chem panel is within normal limits, creatinine 0.78. Patient will see her care doctor for pre-surgical clearance.
[2024-06-25] VITALS (18 sets, daily range): BP systolic 132–201; BP diastolic 76–114; PULSE 84–96; RESP 10–20; TEMP 36.5–37.2; O2SAT 94–100; BMI 36.8
--- NOTE | ~2024-06-25 | XR_ITS ---
[id number] Ordering provider: David العراقي MD History: . POST-OP, LEFT TKA . Comparison: None. FINDINGS: BONES: No acute fracture or dislocation. JOINT SPACES: Total knee arthroplasty. SOFT TISSUES: Postoperative changes. IMPRESSION: No acute osseous abnormality left knee. Total knee arthroplasty. Reviewed, dictated and finalized at location A.
--- OUTSIDE RECORDS SUMMARY | 2024-06-25 01:51 | XMS_ITS | Clinical Summary ---
Author Organization [place] [id number] [facility] Address [address] [place] [address] Care Team Providers Care Steeple Jack Name Role Phone Pasha [place] MD Unavailable [phone] Alex Licea DO Primary Care Provider [phone] Allergies No known active allergies Medications zinc [...] Stress incontinence, female 01/19/2023 Urgency incontinence 01/19/2023 Encounters Date Type Department Care Team Description 06/22/2024 9:45 AM CDT - 06/22/2024 11:59 PM CDT [facility] 1 [facility] [address] [facility] [address] [place] [address] [phone] Screening mammogram, encounter for Discharge Disposition: Discharge to home or self care from Last 3 Months Surgical History Surgery Date Site/Laterality Comments BREAST [...] Comments Blood Pressure 126/67 02/15/2023 4:35 PM DIRECTOR OF DANCE Pulse 69 02/15/2023 4:35 PM DIRECTOR OF DANCE Temperature 36 C (96.8 F) 02/15/2023 2:38 PM DIRECTOR OF DANCE Respiratory Rate 12 02/15/2023 3:10 PM DIRECTOR OF DANCE Oxygen Saturation 95% 02/15/2023 4:35 PM DIRECTOR OF DANCE Inhaled Oxygen Concentration - - Weight 84.8 kg (187 lb) 06/22/2024 9:57 AM CDT Height 157.5 cm (5' 2 ) 06/22/2024 9:57 AM CDT Body Mass Index 34.2 06/22/2024 9:57 AM CDT Plan of Treatment Health Maintenance Due Date Last Done Comments Colon Cancer Screening-Colonoscopy 1955 Depression Screening 1955 Hepatitis C Screening 1956 Osteoporosis Screening-Bone Density Scan 1956 Hepatitis B Screening 1974 Pneumococcal vaccine 65+ (1 of 1 - PCV) 2006 Zoster Vaccine (1 of 2) 2006 Well Visit 65+ 2021 Covid-19 Vaccine (2 - 2023-2 5 season) 2023 06/13/2020 Fall Risk Assessment 02/16/2024 02/15/2023 Influenza Vaccine (Season Ended) 2024 Breast Cancer Screening-Mammogram 06/22/2025 06/22/2024, 06/17/2023, 05/17/2022, Additional history exists DTaP/Tdap/Td Vaccine (2 - Td or Tdap) 10/22/2025 10/23/2015 Medical Devices Implanted Type Area Bobbin Painter Device Identifier Shelf Expiration Date Model / Serial / Lot Screw Screw Bilateral: Foot Description:Bilateral bunion surgery Wires Bilateral: Foot Description:Bunion surgery Cittadino Alberto Upsylon 35.4cm Elongation Profile Lightweight Large Pore Low [id number] - [id number] Implanted:Qty: 1 on 02/15/2023 by Getachew Musa MD at [facility] N/A: Pelvis [place] [employer] Alberto 10/04/2025 [id number] / / [id number] [employer] Sling Urinary Incontinence Female Stress Short Desara Blue Julienne-Ds01bs - [id number] Implanted:Qty: 1 on 02/15/2023 by Getachew Musa MD at [facility] N/A: Pelvis [employer] JULIENNE-DS01B S / / Procedures Procedure Name Priority Date/Time Associated Diagnosis Comments SCREENING MAMMOGRAM BILATERAL W AZAEL Schedule Routine, Read Routine (OP Routine) 06/22/2024 10:03 AM CDT Screening mammogram, encounter for from Last 3 Months Results * Screening Mammogram Bilateral W Azael (06/22/2024 10:03 AM CDT) Anatomical Region Laterality Modality Breast Bilateral Mammography Impressions 06/22/2024 10:09 AM CDT BI-RADS ATLAS category (overall): 2 - Benign There is no mammographic evidence of malignancy. A 1 year screening mammogram is recommended. The patient has been or will be contacted. We recommend annual screening mammography for women at average risk of breast cancer beginning at age 40, based on guidelines of the [place] [employer] (ACR Practice Parameter for the Performance of Screening and Diagnostic Mammography) and [place]. For women with and elevated risk of breast cancer, please refer to the ACR Practice Parameter for specific screening recommendations. The patient will be entered into a reminder system with a target due date of 1 year for her next screening exam. Narrative 06/22/2024 10:09 AM CDT Screening Mammogram Bilateral W Azael: 06/22/24 The study was acquired using full field digital technology and interpreted from soft copy. 2D digital mammographic views, as well as 3D digital tomosynthesis were performed in the CC and MLO projections. CLINICAL: Screening mammogram, encounter for. No relevant medical history has been documented for this patient. History of breast cancer in Neg Hx. COMPARISONS: 06/17/2023 Screening Mammogram Bilateral W Azael 05/17/2022 Diagnostic Mammogram Bilateral W Azael 12/22/2021 US Guided Breast Cyst Aspiration Left 12/11/2021 US Breast Left Limited 12/11/2021 Diagnostic Mammogram Left W Azael 05/07/2021 Diagnostic Mammogram Bilateral W Azael 05/07/2021 US Breast Left Limited 07/01/2017 Breast Imaging Diagnostic Outside Reference BREAST TISSUE: The breasts are heterogeneously dense, [...] Fi nal Result from Last 3 Months Insurance [facility] [employer] [facility] [employer] [facility] [employer] Advance Directives For more information, please contact: [phone] Documents on File Type Date Recorded Patient Manager Of Employee Relations Expl anation ADVANCE DIRECTIVE 09/08/2017 12:00 AM POWER OF PHOTOGRAPHIC PROCESS ATTENDANT FINANCIAL/MEDICAL Care Teams Steeple Jack Relationship Specialty Start Date End Date Alex Licea DO [address] [place] [id number] PCP - General Internal Medicine 05/17/22 Pasha [place] MD [address] [place] [id number] Consulting Physician Surgery 01/21/22
--- OUTSIDE RECORDS SUMMARY | 2024-06-25 01:51 | XMS_ITS | Clinical Summary ---
Author Organization [facility] Address [address] [place] [address] Care Team Providers Care Instructor Physical Name Role Phone Alex Licea DO Primary Care Provider [phone] Encounters Date Type Department Care Team Description 05/03/2024 8:07 AM WEB OPERATIONS LEAD - 05/03/2024 11:59 PM WEB OPERATIONS LEAD Hospital Encounter [facility] [address] [place] [address] Humberto Rosario MD Discharge Disposition: Home or Self Care (Routine Discharge) 05/03/2024 Travel from Last 3 Months Social History Tobacco Use Types Packs/Day Years Used Date Smoking Tobacco: Never Assessed Comments Unknown Sex and Gender Information Value Date Recorded Sex Assigned at Female 04/26/2024 4:23 PM WEB OPERATIONS LEAD Legal Sex Female 8:22 PM CDT Gender Identity Not on file Sexual Orientation Not on file Plan of Treatment Health Maintenance Due Date Last Done Comments Colorectal Cancer Screening Colonoscopy (10 Years) 1956 Hepatitis C 1974 Pneumococcal Vaccine: 50+ Years (1 of 1 - PCV) 2006 Zoster Vaccines (1 of 2) 2006 Annual Medicare Wellness Visit 2021 Dexa Scan (General) 2021 COVID-19 Vaccine (2 - season) 2023 06/13/2020 Mammogram Screening 06/16/2025 06/17/2023, 05/17/2022, 12/11/2021, Additional [...] CALCIUM SCORE PROMO Routine 05/03/2024 8:33 AM WEB OPERATIONS LEAD Screening for heart disease from Last 3 Months Results * CT HEART SCREEN CALCIUM SCORE PROMO (05/03/2024 8:33 AM WEB OPERATIONS LEAD) Anatomical Region Laterality Modality Chest Computed Tomogra phy 05/03/2024 9:53 AM WEB OPERATIONS LEAD Impressions 05/03/2024 9:54 AM WEB OPERATIONS LEAD IMPRESSION: Total Cardiac Calcium Score: 79.8 Mild plaque, moderate risk, low likelihood of significant stenosis (<50%). Referred By: HUMBERTO ROSARIO Interpreted By: Catarino Patrick MD, 05/03/2024 9:53 AM Narrative 05/03/2024 9:54 [place] [address] EXAMINATION: Multislice Helical CT Coronary Calcium Scoring [...] Calcium score guidelines: Total Score* Calcium Plaque Webster *Risk *Probability of significant CAD 0 No [...] Procedure Note Catarino Patrick MD - 05/03/[address] [address] EXAMINATION: Multislice Helical CT Coronary Calcium Scoring [...] Calcium score guidelines: Total Score* Calcium Plaque Webster *Risk *Probability ofsignificant CAD 0 No Plaque [...] Last 3 Months Insurance [employer] Care Teams Instructor Physical Relationship Specialty Start Date End Date Alex Licea DO [address] [place] [address] PCP - General INTERNAL MEDICINE 04/26/24
--- OUTSIDE RECORDS SUMMARY | 2024-06-25 01:51 | XMS_ITS | Data Portability ---
Author Organization [place] [facility] [email or web address], Main Office Address [address] [place] [address] Care Team Providers Care Television News Producer Name Role Phone TYRONE LICEA Primary Care Provider TYRONE LICEA Referring Provider Assessment Encounter Date Assessment Date Assessment LastModified by Organization Details LastModified Time 01/19/2024 01/19/2024 The patient has severe primary osteoarthritis left knee joint with [id number] changes in medial compartment moderately severe changes [...] knee arthroplasty as she has failed other prison conservative measures, we discussed total knee arthroplasty [...] her doctor and he works out of [facility] she would prefer to have her knee done there. We talked about choices of different surgeons at [facility]. She states she has heard of Dr. [...] DO Not Attach Compendium, Do Not Delete/merge, [id number] 13:51:00 Surgeries None recorded. Imaging XR, knee 2023 [email or web address] [email or web address] [place], [facility], [place], [address], 14:55:29 Medication Orders bupivacaine HCl 0.5 % (5 mg/mL) injection solution 2023 [email or web address] [facility] [address] In [facility], [address], [place], [address], 14:55:29 Kenalog 10 mg/mL suspension for injection 2023 024 [email or web address] [facility] [address] In [facility], [address], [place], [address], 14:55:29 Patient TargetsNo targets recorded. Patient InstructionsNo instructions recorded. Reason for Referral None Reported. Results Created Date Observation Date Name Description Value Unit Range Abnormal Flag Note LastModifiedBy Organization Detail LastModifiedTime 01/19/20 24 XR, knee No observ ation record ed. [email or web address] [facility] [place] [address], [place], [address], 01/19/2024 14:29:19 Result Notes None recorded. Problems Name Problem SNOMED Code Status Onset Date Resolution Date Notes Provider Name and Address Organization Details Recorded Time Pain of left knee joint 0207498845860 07 Active 2023 Dona Flores CNA [facility] [email or web address] 13:12:31 Osteoarthri tis of left knee joint 6099467601850 09 Active [address] [facility], [facility] [address], [place], [address] [facility] [email or web address] 14:28:23 Problem Notes None recorded. Procedures Surgical History Date Name Laterality Status Provider Name and Address Organization Details Recorded Time cholecystectomy completed Dona portillo CNA [email or web address] 01/19/2024 13:19:40 Bladder completed Dona Flores CNA [email or web address] 01/19/2024 13:19:55 Imaging Results Imaging Date Name Status LastModified by Organiz ation Details LastModified Time 01/19/2024 XR, knee completed [email or web address] [facility] [place] [address], [place], [address], 01/19/2024 14:29:19 Procedure Notes None recorded. Medical [...] 20 mg by injection route. 2023 active [facility]: 0003- 0494- 20 Not Available Not Available [...] Updated DateTime 01/19/2024 152.4 cm 36.1 kg/m2 51428.59 g Dona Flores CNA [employer] 01/19/2024 13:17:45 Social History Question Answer Notes LastModified by Organizat ion Details LastModified Time Tobacco Smoking Status Never Smoker Dona Flores CNA null, [employer] 01/19/2024 13:19:17 What Is Your Level Of [...] SNOMED-CT Code Diagnosis ICD10 Code Diagnosis Note [id number] JUSTICE Ferguson [facility] [place] [address] [place] [address] 01/19/2024 13:02:03 01/19/2024 14:05:35 Pain of left knee joint [id number] 09132 M25.562 Osteoarthr itis of left knee joint 6614008589 49393 M17.12 Health Concerns Section Related Observation LastModified by Organization Detai ls LastModified Time None Recorded Concern Status LastModified by Organization Details LastModified Time None Recorded Advance Directives Directive None Recorded Payers Encounter Date Sequence Insurance Name Policy Number Policy Crum Covered Member ID Crum Member ID Guarantor Name 01/19/2024 1 [employer] (MEDICARE REPLACEMENT PPO) [id number] Mckenzie Gaston [id number] Mckenzie Gaston Notes Date Note Type Note [...] today with the patient. JUSTICE Ferguson [address] [facility], [facility] [address], [place], [address], [place] [email or web address] 01/19/2024 14:31:54 OBGyn Episode No OBEpisode recorded.
--- OUTSIDE RECORDS SUMMARY | 2024-06-25 01:51 | XMS_ITS | Referral Summary ---
Author Organization [place] [id number] [facility] Address [address] [place] [address] Care Team Providers Care Machine Woodworking Sander Name Role Phone Pasha [place] MD Unavailable Alex Licea DO Primary Care Provider [phone] Encounters Date Type Department Care Team Description 06/22/2024 9:45 AM CDT - 06/22/2024 11:59 PM CDT Hospital Encounter [facility] Medical Office Bldg 1 Breast [facility] [address] [place] [address] Screening mammogram, encounter for Discharge Disposition: Discharge to home or self care from Last 3 Months Allergies No known active allergies Medications zinc [...] hours as needed for pain 30 tablet Active Active Problems Problem Noted Date Diagnosed [...] Blood Pressure 126/67 02/15/2023 4:35 PM DIRECTOR CLINICAL OPERATIONS Pulse 69 02/15/2023 4:35 PM DIRECTOR CLINICAL OPERATIONS Temperature 36 C (96.8 F) 02/15/2023 2:38 PM DIRECTOR CLINICAL OPERATIONS Respiratory Rate 12 02/15/2023 3:10 PM DIRECTOR CLINICAL OPERATIONS Oxygen Saturation 95% 02/15/2023 4:35 PM DIRECTOR CLINICAL OPERATIONS Inhaled Oxygen Concentration - - Weight 84.8 kg (187 lb) 06/22/2024 9:57 AM CDT Height 157.5 cm (5' 2 ) 06/22/2024 9:57 AM CDT Body Mass Index 34.2 06/22/2024 9:57 AM CDT Plan of Treatment Not on file Medical Devices Implanted Type Area Packing Attendant Device Identifier Shelf Expiration Date Model / Serial / Lot Screw Screw Bilateral: Foot Description:Bilateral bunion surgery Wires Bilateral: Foot Description:Bunion surgery [employer] Alberto Upsylon 35.4cm Elongation Profile Lightweight Large Pore Low [id number] - [id number] Implanted:Qty: 1 on 02/15/2023 by Getachew Musa MD at [facility] N/A: Pelvis [place] [employer] Alberto 10/04/2025 [id number] / / [id number] [employer] Sling Urinary Incontinence Female Stress Short Desara Blue Julienne-Ds01bs - [id number] Implanted:Qty: 1 on 02/15/2023 by Getachew Musa MD at [facility] N/A: Pelvis [employer] JULIENNE-DS01B S / / Procedures [...] age 40, based on guidelines of the [place] [employer] (ACR Practice Parameter for the Performance of Screening and Diagnostic Mammography) and [place] [employer]. For women [...] nal Result from Last 3 Months Insurance [facility] [employer] [facility] [employer] [facility] Advance Directives For more information, please contact: [phone] Documents on File Type Date Recorded Patient Steam Trap Man Expl anation ADVANCE DIRECTIVE 09/08/2017 12:00 AM POWER OF SALAD MAKER FINANCIAL/MEDICAL Care Teams Machine Woodworking Sander Relationship Specialty Start Date End Date Alex Licea DO [address] [place] [address] PCP - General Internal Medicine 05/17/22 Pasha [place] MD [address] [place] [address] [id number] Consulting Physician Surgery 01/21/22
[2024-06-25] MEDS: LACTATED RINGERS 1,000 ML 30 ML IV CONT ×2 (06:30→10:51)
[2024-06-25] MEDS: TRANEXAMIC ACID 1,000MG/ISO100 1,000 MG/100 ML BAG 200 MG IVPB (06:30)
[2024-06-25] MEDS: ACETAMINOPHEN 500 MG TABLET 1000 MG PO (06:30)
[2024-06-25] MEDS: VANCOMYCIN 1,250 MG/NS 250 ML BAG 166.67 MG IVPB (06:30)
--- NOTE | 2024-06-25 06:50 | P.PNAN_ITS ---
Anes - Initial Pre Proc Eval Procedure: Operation Date: 06/25/24 07:30 Proposed Procedures p Left Total Knee Arthroplasty - David العراقي MD Date/Time: 06/25/24 06:50 Surgeon: David العراقي MD Pre Op Diagnosis: oa left knee Patient Data Age: 68 Gender: F Height: 1.54 m Weight: 83.6 kg Last Vital Signs Temp 37.4 C 06/07/24 12:10 Pulse 78 06/07/24 12:10 Resp 16 06/07/24 12:10 BP 188/97 H 06/07/24 12:45 Pulse Ox 99 06/07/24 12:10 O2 Del Method Room Air 06/07/24 12:10 Allergies Allergy/AdvReac Type Severity Reaction Status Date / Time lisinopril AdvReac Mild Cough Verified 06/15/24 09:44 Home Medications ?Medication ?Instructions ?Recorded ?Confirmed ?Type cholecalciferol (vitamin D3) 25 25 mcg PO DAILY 04/08/23 06/15/24 History mcg (1,000 unit) capsule zinc acetate 50 mg (zinc) capsule 50 mg PO DAILY 04/08/23 06/15/24 History (Galzin) losartan 100 mg tablet 100 mg PO DAILY #90 tabs 01/06/24 06/15/24 Rx tramadol 50 mg tablet 50 mg PO BID PRN pain #30 tabs 04/26/24 06/15/24 Rx amlodipine 5 mg tablet 5 mg PO DAILY #30 tabs 06/07/24 06/15/24 Rx Patient hx anesthesia problems: none Family hx anesthesia problems: none Results Review: All pre-operative results and documents have been reviewed as part of the pre- operative evaluation. [facility] Past Medical History Medical History Acute calculous cholecystitis Acute cholecystitis Essential (primary) hypertension Surgical History Surgical History Hx laparoscopic cholecystectomy 02/03/22 H/O breast surgery Ductal incision with Dr. [place] at [facility] Family History Family History Mother Hypertension Sibling Hypertension Family history of heart disease in male family member before age 55 Father Family history of kidney disease Family history of diabetes mellitus in first degree relative Family history of heart disease in male family member before age 55 Social History Social History Social History: Caffeine-daily Smoking status: Never smoker Alcohol intake: current Drinks per week: 2 Substance use: never Substance use type: does not use Do You Feel Safe in your Home?: Yes Lack of Transportation: No Lack of Food: Never True Current Housing: I Have Housing Concerned About Future Housing: No Difficulty Paying Gas/Electric Bills: No Difficulty Paying for Meds: No Currently Unemployed: No Education: Bachelor's Degree Difficulty w/ Childcare or Family Care: No Living arrangements: with family Additional living arrangements comments: S.O. Spiritual care concerns: No Anes - Eval Final PreProcedure Day of Procedure 06/25/24 06:50 Patient weight: obese Heart: regular rate and rhythm Lungs: clear to auscultation Airway: Mallampati scale class II Neurological: alert and oriented Last oral intake: >/= 8 hours ASA classification: II Emergent: no Anesthetic plan: proceed Anesthesia type and monitoring: general ETT and standard monitoring Results Review: All pre-operative results and documents have been reviewed as part of the pre- operative evaluation. Informed Consent: The patient's anesthetic plan and its attendant risks and benefits were discusse d with the patient/family/POA. Questions were solicited and answers provided to the satisfaction of the patient/family/POA.
--- NOTE | 2024-06-25 07:18 | WPDHPUPDATE1 ---
History and Physical Update Update Date/Time: 06/25/24 07:18 History and Physical has been reviewed, including an updated exam of the patient. There are NO changes in the patient's condition. Risks, benefits, and alternatives have been discussed and questions answered. Patient agrees to proceed with procedure.
[2024-06-25] MEDS: ceFAZolin 2 GM/D5W 50 ML 2 GM/50 ML BAG IVPB ×3 (07:28→22:30)
[2024-06-25] MEDS: ceFAZolin SODIUM 1 GM VIAL 3 GM (08:07)
[2024-06-25] MEDS: SODIUM CHLORIDE 0.9% IV 37.7 ML, MORPHINE SULFATE INJ (*CRX) 2 MG, ROPivacaine HCL 1% 2... INFILTRATE (08:33)
[2024-06-25] MEDS: TRANEXAMIC ACID 1,000 MG/10 ML AMPUL 1000 MG IV PUSH (10:01)
[2024-06-25] MEDS: ceFAZolin SODIUM 1 GM VIAL IV PUSH (10:03)
--- NOTE | 2024-06-25 10:52 | P.OP_ITS ---
Procedure Note - Detailed Date of Procedure 06/25/24 Pre-op Diagnosis oa left knee Post-op Diagnosis Same Procedure Performed Left total knee arthroplasty Surgeon David العراقي MD General Expeditor Reed Ya PA-C Anesthesia General Description of Procedure Patient was brought to the operating room and general anesthesia was administered. The left knee was prepped draped usual fashion. Under anesthesia she had still a 10 or 12 degree flexion contracture. She received 2 g Ancef weight based vancomycin 1 g of TXA preoperatively. Limb was exsanguinated tourniquet elevated to 300 mmHg. Unfortunately her hypertension that she had preoperatively persisted during surgery of some despite aggressive management and the blood loss was a little bit more than usual estimated 300 cc for the procedure as it was bleeding through the tourniquet little bit. There was extra difficulty due to obesity with BMI of 35.4 which added approximately 45 minutes of operating time to the procedure. A 7 in longitudinal midline incision was used and a vastus medialis splitting approach utilized splitting the vastus medialis at the superior pole of the patella. Partial excision of infrapatellar fat pad was performed. Quadriceps synovectomy carried out. Suprapatellar fat pad excised. Patella head prominent peripheral osteophytes which were trimmed. The patella itself was quite small and thin. It measured 18 mm in thickness centrally. She did not have severe degenerative changes of the patella and non resurfacing was felt to be most appropriate. Osteophytes were trimmed and a minimal lateral facetectomy was performed. Next a guide sesar was inserted on femoral canal after aspiration of canal contents using the 5 degree valgus cutting bushing 9 mm of bone removed the distal femur. This removed about 6 or 7 from the lateral side. The next the tibial plateau was cut. We made a cut 1 mm to the low point of the where area in the medial tibial plateau. She had typical anteromedial wear pattern. Meniscal remnants were excised the PCL was recessed. Flexion gap was assessed and was too tight to accept the 8 mm spacer at 90? medially. We did remove conservatively anteromedial and mid medial osteophyte eventually little bit of posteromedial osteophyte and we did this very carefully to avoid releasing the medial capsule as she did not have a significant varus deformity preoperatively and her normal leg had constitutional I were 6? anatomic axis valgus alignment. With this the knee was still far too tight to except the ulna 8 mm spacer block medially at 90? would not accept a tender laterally. Therefore an additional 2 mm of bone was removed and the tibial plateau. We confirmed the the surface was perfectly flat at this point the medial side except that the 8 mm spacer block and the lateral side the 10 mm spacer block and we applied the distal femoral sizing guide set at 3? of external rotation which matched Whitesides line. Posterior referencing pinholes were placed and the size 57.5 cutting block was applied to the distal femur. This gave a flush cut the anterior cortex posterior chamfer cuts were made and the 57.5 fit line to line medial to lateral. The tibia was sized to a vanguard 63 which fit line to line anteromedial and posterolateral at proper rotation. This was punched and we trialed. The 10 insert was a little bit loose and the 11 had a mm of opening medially and laterally in flexion at 90?. The 12 had no anterior posterior drawer play and was felt to be too tight. The 11 was noted to come out to full extension. We had performed a central posterior capsular release earlier because of her flexion contracture. Residual posterior femoral osteophytes were removed with the trial femur in place and filing final trialing showed knee came out to full extension with the 11 insert negative bounce 1 mm medial 1 mm lateral opening in full extension and gravity flexion 120 mostly limited by soft tissues the back the knee. Passive flexion was to 130 without lift-off. Patellar tracking was central throughout range of motion. With the tourniquet down earlier at 95 minutes and this point the limb was re-exsanguinated tourniquet elevated to 300 mmHg again. Lug holes for the femoral component were drilled. Step drill was used to make multiple perforations of the tibial plateau and distal femur. Bone quality seemed to be excellent. The bony surfaces were thoroughly irrigated and dried. Two batches of methylmethacrylate 1 the gentamicin powder were mixed and immediately applied the size 63 vanguard tibial component in the size 57.5 left CR femoral component. Cement was applied the tibial plateau and in the canal and pressurized tibial component fully seated cement applied the femur the femoral component fully seated the knee brought into extension with a 12 mm 5 in 1 insert for cement pressurization. Tourniquet was released total tourniquet time 110 minutes. After cement hardening excess cement was sought for removed and hemostasis was achieved. We trialed with the 11 insert had the same findings as above and this was chosen placed without difficulty locked with a locking clip range of motion stability and patellar tracking reconfirmed. Local anesthetic cocktail was injected in the periarticular soft tissues. She received additional 2 g of Ancef, and 1 g of TXA at time of wound closure. The arthrotomy was closed with 2. Vicryl and 1. Unidirectional barbed Stratafix suture. The split in the vastus medialis closed with 1. Vicryl. Skin was closed with 2 subcutaneous Vicryl 3-0 subcuticular Monocryl and glue. EBL was 300 cc. There were no complications. She was transferred to postop recovery room stable condition. We will ask the hospitalist to see her postoperatively regarding her hypertension to see if there are any other recommendations. Tenzin Billing Surgery - Charge Forward: Surgery Billing (Left total knee arthroplasty, extra difficulty due to obesity BMI of 35.4.)
--- NOTE | 2024-06-25 11:00 | PM.OP ---
Procedure Note - Brief Procedure Note - Brief Date of procedure: 06/25/24 oa left knee Procedure performed: Left total knee arthroplasty Surgeon: JUSTICE Perkins Findings: 68-year-old female who underwent left total knee arthroplasty on 06/25. On the involved in the procedure including positioning the patient on the OR table in 1st assisting through the time surgery. Total time spent was 3-1/2 hours
[2024-06-25] MEDS: LABETALOL HCL INJ 100 MG/20 ML VIAL 10 MG IV PUSH (11:16)
--- NOTE | 2024-06-25 11:18 | SUR.PHASEI ---
DR. BEARD CALLED FOR BP > 190/100. ORDERED TO GIVE 10 MG LABETOLOL. PATIENT AWAKE, ALERT, DENIES PAIN.
[2024-06-25] MEDS: hydrALAZINE HCL 20 MG/ML VIAL 10 MG IV PUSH (11:48)
--- NOTE | 2024-06-25 11:53 | SUR.PHASEI ---
DR BEARD CALLED RE: ELEVATED BP; ORDERED TO GIVE 10 MG HYDRALAZINE.
[2024-06-25] MEDS: fentaNYL CITRATE INJ (*CRX) 100 MCG/2 ML VIAL 25 MCG IV PUSH (12:11)
[2024-06-25] MEDS: ACETAMINOPHEN 325 MG TABLET 650 MG PO ×3 (14:10→21:06)
[2024-06-25] MEDS: KETOROLAC 15 MG/ML VIAL (*BKC) IV PUSH ×2 (14:10→17:02)
[2024-06-25] MEDS: oxyCODONE HCL (*CRX) 5 MG TAB IR PO ×3 (14:11→21:06)
[2024-06-25] MEDS: SODIUM CHLORIDE 0.9% IV 1,000 ML 125 ML IV CONT (14:11)
--- NOTE | 2024-06-25 16:06 | ADMGEN ---
This patient, Mckenzie Gaston, was admitted to [facility] S[facility] Room 301-01. Patient/family oriented to hospital policies and general routines including ID bracelet, bed and alarms, visiting hours, pain management, procedures, bathroom and other care routines, personal items, smoking policy, room service/diet, and visiting hours. Information on how to activate the Rapid Response Team has been discussed. Patient/Family are encouraged to report perceived risks to care and to ask questions if they do not understand what they are told or what they should do.
--- NOTE | 2024-06-25 16:18 | PM.IMCN ---
Assessment and Plan Assessment and plan (1) Essential (primary) hypertension: Code(s): I10 - Essential (primary) hypertension Status: Acute Assessment and Plan: - Chronic, significantly hypertensive postop -> 201/114. - Given labetalol 10 IV and hydralazine 10 IV -> 152/88. - Continue home medications: Amlodipine 5 mg daily, Losartan 100 mg daily. - Monitor. (2) Primary osteoarthritis of left knee: Code(s): M17.12 - Unilateral primary osteoarthritis, left knee Status: Acute Assessment and Plan: Total left knee arthroplasty on 06/25. - ambulate with assistance and up to chair - use IS - neurovasc checks - see order for intervals - SCDs - analgesics and antipyretics p.r.n. - monitor labs in AM - CBC and BMP - bowel regimen: docusate/senna, polyethylene glycol - PT/OT Plan Diet: Regular GI Prophylaxis: Famotidine p.o. DVT Prophylaxis: SCDs, start Eliquis on 06/26 Lines: Peripheral Code Status: Full code HPI Date of Consult Consult date: 06/26/24 Requesting Physician: David العراقي MD Primary Care Provider: Alex Licea DO Consult Narrative Reason for consult: Medical Management pt having signif. HTN during surgery Narrative: 68 y/o F with PMH of HTN presents here for a total left knee arthroplasty. The patient presents here for an elective left total knee arthroplasty on 06/25. Pre surgically the patient reports she has had ongoing left knee pain for the past 3 years. She has been treated nonsurgically for the past few years. She has previously underwent cortisone injections, last injection in January of 2024. She reports the injection was only effective for a short duration. She does not take a daily NSAID as she is concerned about side effects. She elected to move forward with surgical management as the symptoms were bothering her on a daily basis and have begun to limit her activities. She underwent a total left knee arthroplasty on 06/25/2024 with Malcom BRUCE. postsurgery the patient was significantly hypertensive, BP greater than 190/100. She was given labetalol 10 mg IV and hydralazine 10 mg IV, BP now 151/77. Postoperatively the patient reports no significant pain or paraesthesias, or nausea. Reports she has historically had higher pressures when she is in the healthcare setting. During her cardiac clearance appt, her BP was 190/100 and she contacted her PCP who started her on Amlodipine on 06/07. She reports no issues since. She denies any other new or recent alterations to her home medications. Preop VS: 99.4? F, HR 78, R 16, 182/98, and 99% on RA. Preop workup: WBC 11.1, no anemia, no significant electrolyte derangements, creatinine 0.78 and GFR >60, A1c 5.4%. Review of Systems Review of Systems: All systems reviewed & are unremarkable except as noted in HPI and below PMFSH Past Medical History Medical History Female bladder prolapse Benign essential hypertension Dyslipidemia Right bundle branch block Surgical History Surgical History History of partial hysterectomy unilateral oophorectomy, right, due to adhesiolysis History of tubal ligation Hx of LASIK History of hammertoe correction History of bunionectomy of both great toes History of bladder suspension procedure Hx laparoscopic cholecystectomy 02/03/22 H/O breast surgery Ductal incision with Dr. Mitchell at [facility] Family History Family History Mother Hypertension Sibling Hypertension Family history of heart disease in male family member before age 55 Father Family history of kidney disease Family history of diabetes mellitus in first degree relative Family history of heart disease in male family member before age 55 Social History Social History Social History: Caffeine-daily Smoking status: Never smoker Alcohol intake: current Drinks per week: 2 Substance use: never Substance use type: does not use Do You Feel Safe in your Home?: Yes Lack of Transportation: No Lack of Food: Never True Current Housing: I Have Housing Concerned About Future Housing: No Difficulty Paying Gas/Electric Bills: No Difficulty Paying for Meds: No Currently Unemployed: No Education: Bachelor's Degree Difficulty w/ Childcare or Family Care: No Living arrangements: with family Additional living arrangements comments: S.O. Spiritual care concerns: No Meds Home Medications and Allergies Home Medications ?Medication ?Instructions ?Recorded ?Confirmed ?Type cholecalciferol (vitamin D3) 25 25 mcg PO DAILY 04/08/23 06/25/24 History mcg (1,000 unit) capsule zinc acetate 50 mg (zinc) capsule 50 mg PO DAILY 04/08/23 06/25/24 History (Galzin) losartan 100 mg tablet 100 mg PO DAILY #90 tabs 01/06/24 06/25/24 Rx amlodipine 5 mg tablet 5 mg PO DAILY #30 tabs 06/07/24 06/25/24 Rx acetaminophen 325 mg tablet 650 mg (2 x 325 mg) PO Q4H #90 tabs 06/26/24 Rx apixaban 2.5 mg tablet (Eliquis) 2.5 mg PO Q12HR #28 tabs 06/26/24 Rx cefdinir 300 mg capsule 300 mg PO Q12HR #14 caps 06/26/24 Rx celecoxib 200 mg capsule (Celebrex) 200 mg PO DAILY@0800 #60 caps 06/26/24 Rx oxycodone 5 mg tablet 5 mg PO Q4H PRN pain #40 tabs 06/26/24 Rx polyethylene glycol 3350 17 gram 17 g PO QAM #30 ea 06/26/24 Rx oral powder packet (Miralax) sennosides 8.6 mg-docusate sodium 2 tab PO BID #60 tabs 06/26/24 Rx 50 mg tablet (Senokot-S) Allergies Allergy/AdvReac Type Severity Reaction Status Date / Time lisinopril AdvReac Mild Cough Verified 06/25/24 07:00 Vital Signs Vital Signs - 24 hr 06/25/24 07:06 06/25/24 11:03 06/25/24 11:10 Temperature 97.7 F 98.2 F Pulse Rate 85 94 Respiratory Rate 18 11 L Blood Pressure 149/76 H 194/102 H 201/114 H Pulse Oximetry 100 99 Oxygen Delivery Room Air Simple Face Mask Oxygen Flow Rate 8 06/25/24 11:15 06/25/24 11:16 06/25/24 11:30 Temperature Pulse Rate 89 96 84 Respiratory Rate 11 L 11 L Blood Pressure 184/92 H 192/104 H Pulse Oximetry 99 99 Oxygen Delivery Simple Face Mask Room Air Oxygen Flow Rate 8 06/25/24 11:40 06/25/24 11:45 06/25/24 12:00 Temperature Pulse Rate 87 89 Respiratory Rate 11 L 13 Blood Pressure 197/106 H 187/97 H 156/88 H Pulse Oximetry 96 96 Oxygen Delivery Nasal Cannula Nasal Cannula Oxygen Flow Rate 1 1 06/25/24 12:15 06/25/24 12:30 06/25/24 12:45 Temperature Pulse Rate 86 86 85 Respiratory Rate 10 L 12 12 Blood Pressure 152/88 H 155/93 H 169/85 H Pulse Oximetry 94 94 96 Oxygen Delivery Nasal Cannula Nasal Cannula Nasal Cannula Oxygen Flow Rate 1 2 2 06/25/24 12:56 06/25/24 13:20 06/25/24 13:21 Temperature 98.2 F Pulse Rate 90 87 Respiratory Rate 13 16 Blood Pressure 164/92 H 168/86 H Pulse Oximetry 99 99 Oxygen Delivery Nasal Cannula Room Air Oxygen Flow Rate 2 06/25/24 14:05 06/25/24 14:06 06/25/24 14:46 Temperature 98.5 F Pulse Rate 96 Respiratory Rate 18 Blood Pressure 145/80 H Pulse Oximetry 99 99 Oxygen Delivery Room Air Room Air Oxygen Flow Rate 06/25/24 15:05 Temperature 97.9 F Pulse Rate 92 Respiratory Rate 20 Blood Pressure 151/77 H Pulse Oximetry 98 Oxygen Delivery Oxygen Flow Rate Exam Const: General: comfortable and no acute distress Other: , female, nontoxic appearance HENMT: Face/Nose/Sinus: Normal nares present Mouth: Yes moist mucous membranes Eyes: General: appearance normal, both eyes and all related structures Sclera: sclerae normal Pupils: Equal, round and reactive pupils present EOM: EOMs intact bilaterally Resp: Effort & Inspection: normal respiratory effort Auscultation: clear to auscultation bilaterally Cardio: Rate: regular rate Rhythm: regular rhythm Other: S1-S2 present without murmur, rub, ectopy GI: Other: Abdomen soft, nondistended, nontender. Normoactive bowel sounds in all quadrants. Skin: General skin exam: normal color and no rashes or lesions noted Other: Postoperative incision to left knee. Dressing CDI. Minimal edema. No crepitus. Neuro: Speech: normal speech Motor exam (neuro): 5/5 motor strength present throughout Sensory Exam: normal sensation Other: A&O x4 Extrem: General: normal exam except as noted (See skin exam) Psych: Mental Status: mental status grossly normal Affect: normal affect Other: Good insight and judgment, pleasant. Results Labs 06/26/24 05:26 06/26/24 05:26 Quality VTE Prophylaxis VTE prophylaxis: mechanical ordered and pharmacologic ordered Hospitalist MIPS Advance Care Plan I have confirmed that the patient's Advanced Care Plan is present, code status is documented, or surrogate decision maker is listed in patient medical record.: Yes Medication Reconciliation I have utilized all available resources to obtain, update and review the patients current medications (includes all prescriptions, OTC, herbals, cannabis, and nutritional supplements).: Yes
[2024-06-25] MEDS: SENNA/DOCUSATE SODIUM TABLET 2 TAB PO (17:03)
[2024-06-25] MEDS: VANCOMYCIN 1,000 MG/NS 250 ML 1,000 MG/250 ML BAG 250 MG IVPB (17:46)
[2024-06-25] MEDS: FAMOTIDINE 20 MG TABLET PO (21:06)
[2024-06-26 00:31] VITALS: BP 113/64; PULSE 87; RESP 16; TEMP 36.7; O2SAT 97
[2024-06-26] MEDS: oxyCODONE HCL (*CRX) 5 MG TAB IR PO ×2 (04:55→08:51)
[2024-06-26] MEDS: ACETAMINOPHEN 325 MG TABLET 650 MG PO ×2 (04:55→08:47)
[2024-06-26 05:24] VITALS: BP 133/57; PULSE 82; RESP 16; TEMP 36.7; O2SAT 98
[2024-06-26] MEDS: VANCOMYCIN 1,000 MG/NS 250 ML 1,000 MG/250 ML BAG 250 MG IVPB (05:45)
[2024-06-26 05:51] LABS: Basophils Percent Auto 0.1 % (0.2-1.2); Eosinophils Absolute Auto 0.1 K/mm3 (0-0.3); Eosinophils Percent Auto 0.6 % (0-4.4); Hematocrit 32.4 % (37.0-47.0); Hemoglobin 10.4 g/dL (12.0-15.0); Immature Granulocyte Absolute 0.17 K/mm3 (0.00-0.031); Immature Granulocyte Percent A 1.2 % (0-0.5); Lymphocytes Absolute Auto 2.27 K/mm3 (0.9-3.2); Lymphocytes Percent Auto 16.6 % (18.3-44.2); Mean Corpuscular HGB Conc 32.1 g/dl (32-36); Mean Corpuscular Hemoglobin 29.5 pg (26-34); Mean Platelet Volume 10.2 fl (7.4-10.4); Monocytes Absolute Auto 1.4 K/mm3 (0.1-0.6); Monocytes Percent Auto 10.1 % (2.6-8.5); Neutrophils Absolute Auto 9.8 K/mm3 (1.3-6.7); Neutrophils Percent Auto 71.4 % (45.5-73.1); Platelet Count Result 262 k/mm3 (150-375); Red Blood Count 3.52 M/mm3 (4.2-5.4); Red Cell Distribution Width 12.3 % (11.5-14.5); White Blood Count 13.7 K/mm3 (4.5-10.0)
[2024-06-26 05:59] LABS: Anion Gap 10 mmol/L (4-12); Blood Urea Nitrogen 12 mg/dL (7-17); Calcium 8.6 mg/dL (8.4-10.2); Carbon Dioxide 23 mmol/L (22-30); Chloride 103 mmol/L (98-107); Estimated CRCL calculation 78 ml/min; Estimated Glomerular Filt Rate > 60; Glucose 127 mg/dL (65-110); Potassium 3.5 mmol/L (3.4-5.0); Sodium 136 mmol/L (137-145)
[2024-06-26] MEDS: ceFAZolin 2 GM/D5W 50 ML 2 GM/50 ML BAG IVPB (07:00)
--- NOTE | 2024-06-26 07:18 | P.PNOP_ITS ---
Subjective Subjective Date/Time Seen: 06/26/24 07:18 Interval history: Postop day 1 patient is alert. She has been afebrile vital signs are stable. Blood pressure has been doing very well overnight. Pain is well controlled. Patient was up walking yesterday physical therapy very comfortable. She has been to the restroom multiple times throughout the afternoon yesterday, morning labs are noted. Dressing is dry and intact. Neurovascularly she is intact. Overall patient is doing very. Will plan have the patient work with therapy this morning if she remains comfortable she will be home late this morning Objective Data Vital Signs Vital Signs: Vital Signs - 24 hr 06/25/24 11:03 06/25/24 11:10 06/25/24 11:15 Temperature 98.2 F Pulse Rate 94 89 Respiratory Rate 11 L 11 L Blood Pressure 194/102 H 201/114 H 184/92 H Pulse Oximetry 99 99 Oxygen Delivery Simple Face Mask Simple Face Mask Oxygen Flow Rate 8 8 06/25/24 11:16 06/25/24 11:30 06/25/24 11:40 Temperature Pulse Rate 96 84 Respiratory Rate 11 L Blood Pressure 192/104 H 197/106 H Pulse Oximetry 99 Oxygen Delivery Room Air Oxygen Flow Rate 06/25/24 11:45 06/25/24 12:00 06/25/24 12:15 Temperature Pulse Rate 87 89 86 Respiratory Rate 11 L 13 10 L Blood Pressure 187/97 H 156/88 H 152/88 H Pulse Oximetry 96 96 94 Oxygen Delivery Nasal Cannula Nasal Cannula Nasal Cannula Oxygen Flow Rate 1 1 1 06/25/24 12:30 06/25/24 12:45 06/25/24 12:56 Temperature Pulse Rate 86 85 90 Respiratory Rate 12 12 13 Blood Pressure 155/93 H 169/85 H 164/92 H Pulse Oximetry 94 96 99 Oxygen Delivery Nasal Cannula Nasal Cannula Nasal Cannula Oxygen Flow Rate 2 2 2 06/25/24 13:20 06/25/24 13:21 06/25/24 14:05 Temperature 98.2 F 98.5 F Pulse Rate 87 96 Respiratory Rate 16 18 Blood Pressure 168/86 H 145/80 H Pulse Oximetry 99 99 Oxygen Delivery Room Air Oxygen Flow Rate 06/25/24 14:06 06/25/24 14:46 06/25/24 15:05 Temperature 97.9 F Pulse Rate 92 Respiratory Rate 20 Blood Pressure 151/77 H Pulse Oximetry 99 98 Oxygen Delivery Room Air Room Air Oxygen Flow Rate 06/25/24 16:12 06/25/24 19:54 06/25/24 21:13 Temperature 98.9 F Pulse Rate 87 Respiratory Rate 16 Blood Pressure 132/82 Pulse Oximetry 98 Oxygen Delivery Room Air Room Air Oxygen Flow Rate 06/26/24 00:31 06/26/24 05:24 Temperature 98.1 F 98.0 F Pulse Rate 87 82 Respiratory Rate 16 16 Blood Pressure 113/64 133/57 L Pulse Oximetry 97 98 Oxygen Delivery Oxygen Flow Rate Intake/Output Intake/Output: Intake & Output 06/23/24 06/24/24 06/25/24 06/26/24 23:59 23:59 23:59 23:59 Intake Total 2200 250 Balance 2200 250 Meds/Results Medications: Active Medications Generic Name Dose Route Start Last Admin Trade Name Freq PRN Reason Stop Dose Admin Acetaminophen 650 mg 06/25/24 13:00 06/26/24 04:55 Acetaminophen 325 Mg Tablet PO 650 mg Q4H [place] Administration Amlodipine Besylate 5 mg 06/26/24 09:00 Amlodipine Besylate 5 Mg Tablet PO DAILY [place] Apixaban 2.5 mg 06/26/24 09:00 Apixaban 2.5 Mg Tablet PO 07/07/24 21:01 Q12HR [place] Cefdinir 300 mg 06/26/24 09:00 Cefdinir 300 Mg Capsule PO Q12HR [place] Celecoxib 200 mg 06/26/24 08:00 Celecoxib 200 Mg Capsule PO DAILY@0800 [place] Diphenhydramine HCl 25 mg 06/25/24 12:58 Diphenhydramine Hcl Inj 50 Mg/Ml Vial IV PUSH Q6H PRN Itching Famotidine 20 mg 06/25/24 21:00 06/25/24 21:06 Famotidine 20 Mg Tablet PO 20 mg Q12HR [place] Administration Cefazolin Sodium 2 gm in 50 mls @ 100 mls/hr 06/25/24 15:30 06/25/24 23:00 Ancef 2 Gm/D5w 50 Ml IVPB 06/26/24 07:59 Infused Q8H [place] Infusion Vancomycin HCl 1,000 mg in 250 mls @ 250 mls/hr 06/25/24 18:30 06/26/24 05:45 Vancomycin 1,000 Mg/Ns 250 Ml IVPB 06/26/24 07:29 250 mls/hr Q12H [place] Administration Losartan Potassium 100 mg 06/26/24 09:00 Losartan Potassium 100 Mg Tablet PO DAILY [facility] Morphine Sulfate 2 mg 06/25/24 12:58 Morphine Sulfate (*Crx) 2 Mg/Ml Inj IV PUSH Q2H PRN Breakthrough Pain Rated 4-6 or NPO Naloxone HCl 0.1 mg 06/25/24 12:58 Naloxone Hcl 0.4 Mg/Ml Vial IV PUSH Q2M PRN Opiate Reversal Ondansetron HCl 4 mg 06/25/24 12:58 Ondansetron Inj 4 Mg/2 Ml Vial IV PUSH Q4H PRN Nausea And Vomiting Oxycodone HCl 5 mg 06/25/24 14:00 06/26/24 04:55 Oxycodone Hcl (*Crx) 5 Mg Tab Ir PO 5 mg Q4H [place] Administration Oxycodone HCl 5 mg 06/25/24 12:58 Oxycodone Hcl (*Crx) 5 Mg Tab Ir PO Q4H PRN Pain Rated 7-10 Polyethylene Glycol 17 gm 06/26/24 09:00 Polyethylene Glycol 3350 17 Gm Powd.Pack PO QAM [facility] Senna/Docusate Sodium 2 tab 06/25/24 17:00 06/25/24 17:03 Senna/Docusate Sodium Tablet PO 2 tab BID [facility] Administration Vitamin D 1,000 units 06/26/24 09:00 Cholecalciferol 1,000 Units Tablet PO DAILY [facility] Radiology Results: ITS Impressions Knee X-Ray 06/25/24 11:00 IMPRESSION: No acute osseous abnormality left knee. Total knee arthroplasty. Labs Labs: Laboratory Results - last 24 hr 06/25/24 06/26/24 06:31 05:26 WBC 13.7 H RBC 3.52 L Hgb 10.4 L D Hct 32.4 L MCV 92.0 MCH 29.5 MCHC 32.1 RDW 12.3 Plt Count 262 MPV 10.2 Immature Gran % (Auto) 1.2 H Neut % (Auto) 71.4 Lymph % (Auto) 16.6 L [place] % (Auto) 10.1 H Eos % (Auto) 0.6 Baso % (Auto) 0.1 L Lymph # (Auto) 2.27 [place] # (Auto) 1.4 H Eos # (Auto) 0.1 Baso # (Auto) 0.0 Abs Immat Gran (auto) 0.17 H Absolute Neuts (auto) 9.8 H Absolute Nucleated RBC 0.000 Nucleated RBC % 0.0 Sodium 136 L Potassium 3.5 Chloride 103 Carbon Dioxide 23 Anion Gap 10 BUN 12 Creatinine 0.60 L Estim Creat Clear Calc 78 Estimated GFR > 60 Glucose 127 H Calcium 8.6 Blood Type B Positive Antibody Screen Negative
[2024-06-26 08:00] VITALS: BP 136/68; PULSE 75; RESP 18; TEMP 36.4; O2SAT 99
[2024-06-26] MEDS: amLODIPine BESYLATE 5 MG TABLET PO (08:45)
[2024-06-26] MEDS: CHOLECALCIFEROL 1,000 UNITS TABLET 1000 UNITS PO (08:45)
[2024-06-26] MEDS: LOSARTAN POTASSIUM 100 MG TABLET PO (08:46)
[2024-06-26] MEDS: FAMOTIDINE 20 MG TABLET PO (08:46)
[2024-06-26] MEDS: SENNA/DOCUSATE SODIUM TABLET 2 TAB PO (08:46)
[2024-06-26] MEDS: APIXABAN 2.5 MG TABLET PO (08:46)
[2024-06-26] MEDS: CEFDINIR 300 MG CAPSULE PO (08:46)
[2024-06-26] MEDS: polyethylene glycoL 3350 17 GM POWD.PACK PO (08:47)
[2024-06-26] MEDS: CELECOXIB 200 MG CAPSULE PO (08:51)
[2024-06-26 12:00] VITALS: BP 165/87; RESP 18; TEMP 37.1; O2SAT 99
== END 2024-06-26 12:25 | disposition home or self-care (01) ==
LOC: ANHSURGERY 06:01 → ANH3MEDSUR 13:02
PROVIDERS: Physician Assistant Surgical; PCP Internal Medicine; Visit Provider Orthopaedic Surgery
PROC: (CPT 27447; principal; 2024-06-25 07:30)
DX: M17.12 Unilateral primary osteoarthritis, left knee (principal); I10 Essential (primary) hypertension; E66.9 Obesity, unspecified; Z68.36 Body mass index [BMI] 36.0-36.9, adult
CPT/HCPCS: 27447; 36415; 73560; 80048; 85025; 86850; 86900; 86901; 94640; 97110; 97116; 97161; 97165; 97530; 97535; A9270; C1713; C1776; J0171; J0360; J0690; J1100; J1171; J1885; J2250; J2270; J2405; J2704; J2795; J3010; J3370; J7030; J7120

== ENCOUNTER 2024-08-02 08:00 | Outpatient (RCR) | payer MEDICARE, SELFPAY ==
--- NOTE | 2024-06-28 16:55 | OPREHPOC ---
Outpatient Therapy Plan of Care This is a Multidisciplinary Plan of Care that may contain components documented by all disciplines (PT, OT, and ST.) PT Problem 1 PT Problem #1 Knowledge Deficit PT Goal 1 Goal / Goal Update [place] with HEP Target Visit 2 PT Goal 2 Goal / Goal Update Report no pain greater than 2/10 for 2 consecutive weeks Target Visit 4 PT Problem 2 PT Problem #2 Impaired Range of Motion PT Goal 1 Goal / Goal Update 1. Achieve terminal knee extension on left 2. Achieve 125 degrees of left knee flexion ROM for functional foot clearance and bending activity Target Visit 10 PT Problem 3 PT Problem #3 Edema PT Goal 1 Goal / Goal Update 1. Demonstrate 3+ CM reduction in joint line swelling indicating soft tissue healing Target Visit 10 PT Problem 4 PT Problem #4 Impaired Gait PT Goal 1 Goal / Goal Update 1. Ambulate independently of AD 2. Ambulate with even stride length bilaterally Target Visit 10
--- NOTE | 2024-06-28 16:56 | PTOPEVAL1 ---
Assessment and note entered by Balbir Burroughs, PT Evaluation Information Assessment Status Evaluation Diagnosis Left Total Knee Arthroplasty ICD-10 Condition Codes (PT) Pain in left knee M25.562 Onset 06/25/24 Subjective Information Patient reports that she had her first full night of sleep yesterday and is feeling good today overall. She has been taking pain medication regularly. She really wants to make sure she is doing her exercises correctly today. Has been using a walker daily. She is also currently on Celebrex. Reported Pain Level Pain Score 3: Self Report Assessment PT Clinical Summary Patient presents with swelling, loss of knee ROM, weakness, and altered gait all typical of post operative total knee arthroplasty. Patient reflects compliance and understanding with HEP. Will benefit from skilled therapy to address these deficits for full functional recovery and longterm independence. Plan of Care Interventions Gait Training,Manual Therapy,Neuro Re-education, Therapeutic Activities,Therapeutic Exercise PT Services Indicated Yes Treatment Frequency and 2x/week for 10 visits Duration These treatments will address the objective and functional deficits as defined above. The patient will be advanced safely and appropriately in order for the patient to progress towards his/her prior level of function. Additional exercises will be introduced and as well as a comprehensive home exercise program upon discharge, if needed, ?to ensure carryover of functional gains achieved in the clinic. This treatment plan has been reviewed and agreement upon by the patient.
--- NOTE | 2024-08-02 08:47 | OPREHPOC ---
Outpatient Therapy Plan of Care This is a Multidisciplinary Plan of Care that may contain components documented by all disciplines (PT, OT, and ST.) PT Problem 1 PT Problem #1 Knowledge Deficit PT Goal 1 Goal / Goal Update [place] with HEP Target Visit 2 Progress Met PT Goal 2 Goal / Goal Update Report no pain greater than 2/10 for 2 consecutive weeks Target Visit 4 Progress Met PT Problem 2 PT Problem #2 Impaired Range of Motion PT Goal 1 Goal / Goal Update 1. Achieve terminal knee extension on left 2. Achieve 125 degrees of left knee flexion ROM for functional foot clearance and bending activity Target Visit 10 Progress Met PT Problem 3 PT Problem #3 Edema PT Goal 1 Goal / Goal Update 1. Demonstrate 3+ CM reduction in joint line swelling indicating soft tissue healing Target Visit 10 Progress Met PT Problem 4 PT Problem #4 Impaired Gait PT Goal 1 Goal / Goal Update 1. Ambulate independently of AD 2. Ambulate with even stride length bilaterally Target Visit 10 Progress Met
--- NOTE | 2024-08-02 08:47 | PTOPDC ---
Assessment and note entered by Balbir Burroughs, PT Evaluation Information Assessment Status Discharge Diagnosis Left Total Knee Arthroplasty ICD-10 Condition Codes (PT) Pain in left knee M25.562 Onset 06/25/24 Subjective Information Reports that overalls he feels she is doing very well. She denies any pain or discomfort and feels she has met all functional goals. She has been biking approximately 3 miles in the gym with no pain or latent discomfort. Feels ready for discharge at this time. Reported Pain Level Pain Score 0: Self Report Assessment PT Clinical Summary Patient has met all goals for therapy at this time . Patient is independent with HEP and overall reports functional independence. She is suitable for discharge at this time to [facility]. Plan of Care PT Services Indicated Yes
== END 2024-08-02 10:07 | disposition home or self-care (01) ==
LOC: ANHPT 08:00
PROVIDERS: PCP Internal Medicine; Visit Provider Orthopaedic Surgery
DX: M17.12 Unilateral primary osteoarthritis, left knee (principal); Z96.652 Presence of left artificial knee joint
CPT/HCPCS: 97016; 97110; 97140; 97161; 97530

== ENCOUNTER 2024-10-11 09:08 | Outpatient (CLI) | payer MEDICARE, SELFPAY ==
--- OUTSIDE RECORDS SUMMARY | 2024-10-11 09:16 | XMS_ITS | Clinical Summary ---
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
--- OUTSIDE RECORDS SUMMARY | 2024-10-11 09:16 | XMS_ITS | Clinical Summary ---
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
[2024-10-11 13:09] LABS: Hematocrit 41.3 % (37.0-47.0); Hemoglobin 13.1 g/dL (12.0-15.0); Immature Granulocyte Percent A 1.3 % (0-0.5); Lymphocytes Absolute Auto 2.47 K/mm3 (0.9-3.2); Mean Corpuscular HGB Conc 31.7 g/dl (32-36); Mean Corpuscular Hemoglobin 28.7 pg (26-34); Mean Corpuscular Volume 90.4 fl (80-100); Nucleated Red Blood Cells Absolute Auto 0.000 K/mm3 (0.0-0.012); Nucleated Red Blood Cells Perc 0.0 % (0.0-0.2); Platelet Count Result 321 k/mm3 (150-375); Red Blood Count 4.57 M/mm3 (4.2-5.4); White Blood Count 8.9 K/mm3 (4.5-10.0)
[2024-10-11 13:13] LABS: Anion Gap 7 mmol/L (4-12); Blood Urea Nitrogen 18 mg/dL (7-17); Calcium 9.8 mg/dL (8.4-10.2); Carbon Dioxide 28 mmol/L (22-30); Chloride 100 mmol/L (98-107); Estimated Glomerular Filt Rate > 60; Glucose 91 mg/dL (65-110); Potassium 3.9 mmol/L (3.4-5.0); Sodium 135 mmol/L (137-145)
== END 2024-10-11 09:09 | disposition home or self-care (01) ==
LOC: ANHGOSHLAB 09:08
PROVIDERS: PCP Internal Medicine; Visit Provider Clinical Nurse Specialist
DX: D72.829 Elevated white blood cell count, unspecified (principal); I10 Essential (primary) hypertension
CPT/HCPCS: 36415; 80048; 85025

== ENCOUNTER 2025-01-18 08:27 | Outpatient (CLI) | payer MEDICARE, SELFPAY ==
--- OUTSIDE RECORDS SUMMARY | 2025-01-18 08:41 | XMS_ITS | Clinical Summary ---
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 Pulse 69 02/15/2023 4:35 PM INSPECTOR MOTOR VEHICLES Temperature 36 C (96.8 F) 02/15/2023 2:38 PM INSPECTOR MOTOR VEHICLES Respiratory Rate 12 02/15/2023 3:10 PM INSPECTOR MOTOR VEHICLES Oxygen Saturation 95% 02/15/2023 4:35 PM INSPECTOR MOTOR VEHICLES Inhaled Oxygen Concentration - - Weight 84.8 kg (187 lb) 06/22/2024 9:57 AM CDT Height 157.5 cm (5' 2) 06/22/2024 9:57 AM CDT Body Mass Index 34.2 06/22/2024 9:57 AM CDT Plan of Treatment Health Maintenance Due Date Last Done Comments Colon Cancer Screening-Colonoscopy 1955 Depression Screening 1955 Hepatitis C Screening 1955 Osteoporosis Screening-Bone Density Scan 1955 Hepatitis B Screening 1974 Pneumococcal vaccine 65+ (1 of 2 - PCV) 12/08/1975 Zoster Vaccine (1 of 2) 2006 Well Visit 65+ 2021 Fall Risk Assessment 02/16/2024 02/15/2023 Covid-19 Vaccine (2 - 2024-2 6 season) 2024 06/13/2020 Influenza Vaccine (#1) 2024 Breast Cancer Screening-Mammogram 06/22/2025 06/22/2024, 06/17/2023, 05/17/2022, Additional history exists DTaP/Tdap/Td Vaccine (2 - Td or Tdap) 10/22/2025 10/23/2015 Medical Devices Implanted Type Area Induction Coordination Power Engineer Device Identifier Shelf Expiration Date Model / Serial / Lot Screw Screw Bilateral: Foot Description:Bilateral bunion surgery Wires Bilateral: Foot Description:Bunion surgery [employer] Alberto Upsylon 35.4cm Elongation Profile Lightweight Large Pore Low [id number] - [id number] Implanted:Qty: 1 on 02/15/2023 by Getachew Musa MD at [facility] N/A: Pelvis [employer] Alberto 10/04/2025 [id number] / / [id number] [employer] Sling Urinary Incontinence Female Stress Short Desara Blue Julienne-[id number] - [id number] Implanted:Qty: 1 on 02/15/2023 by Getachew Musa MD at [facility] N/A: Pelvis [employer] [id number] [...] age 40, based on guidelines of the [place] [employer] (ACR Practice Parameter for the Performance of Screening and Diagnostic Mammography) and [place] [employer]. For women [...] Most Recently Relevant to Health Maintenance Insurance [facility] Advance Directives For more information, please contact: [phone] Documents on File Type Date Recorded Patient Grocery Stocker Expl anation ADVANCE DIRECTIVE 09/08/2017 12:00 AM POWER OF CORRECTIONAL CAPTAIN FINANCIAL/MEDICAL Care Teams News Camera Person Relationship Specialty Start Date End Date Alex Licea DO [address] [address] PCP - General Internal Medicine 05/17/22 Pasha Mitchell MD [address] [place] [id number] Consulting Physician Surgery 01/21/22
--- OUTSIDE RECORDS SUMMARY | 2025-01-18 08:41 | XMS_ITS | Clinical Summary ---
Author Organization [facility] Address [address] [place] [address] Care Team Providers Care Inspector Watch Train Name Role Phone Alex Licea DO Primary Care Provider [phone] Social History Tobacco Use Types Packs/Day Years Used Date Smoking Tobacco: Never Assessed Comments Unknown Sex and Gender Information Value Date Recorded Sex Assigned at Female 04/26/2024 4:23 PM MANAGER OF CASE Legal Sex Female 8:22 PM CDT Gender [...] (General) 2021 COVID-19 Vaccine (2 - season) 2024 06/13/2020 Influenza Adult (#1) 2024 Mammogram Screening 06/16/2025 06/17/2023, 05/17/2022, 12/11/2021, Additional history exists DTaP, Tdap and Td Vaccines (2 - Td or Tdap) 10/22/2025 10/23/2015 RSV Immunization or 60+ Years (1 - 1-dose 75+ series) 12/08/2031 Hepatitis A Vaccines Aged Out No long er eligible based on patient's age to complete this topic Meningococcal B Vaccine Aged Out No l onger eligible based on patient's age to complete this topic Meningococcal Vaccine Aged Out No fariba herminio eligible based on patient's age to complete this topic RSV Immunizations Under 20 Months Aged Out No longer eligible based on patient's age to complete this topic Insurance AETNA MEDICARE Care Teams Inspector Watch Train Relationship Specialty Start Date End Date Alex Licea DO [address] [facility] [address] [place] [address] PCP - General INTERNAL MEDICINE 04/26/24
--- NOTE | 2025-01-18 08:44 | EST_ITS ---
Patient Info Name: Mckenzie Gaston Age: 69 years : 1955 Gender: Female Ht: 62 in Wt: 171 lbs BSA: 1.87 m2 HR: 76 bpm BP: 143 / 81 mmHg Exam Date: 01/18/2025 9:07 AM Patient Status: O Admit Date: 01/18/2025 Exam Type: CA stress echo Treadmill exercise stress echocardiogram is performed. Staff Referring Physician: Montse Guy Attending Provider: Montse DUMONT Exercise Technologist: Smith Yarbrough DO Exercise Physician: Smith Yarbrough DO Summary 1. 1. Negative Rolando exercise stress test for ischemic ST changes by ECG criteria. 2. 2. Reduced functional capacity, achieving 4.7 METs of workload. 3. 3. Appropriate HR response to exercise. 4. 4. Appropriate HR recovery at 1 minute post exercise. 5. 5. Negative stress echocardiogram for ischemia by wall motion analysis. 6. 6. Patient informed of the above results. Stress Echo Findings Left Ventricle Appropriate increase in LV endocardial thickening with systole. Appropriate augmentation of contractility with systole. No wall motion abnormality. Left Ventricle Normal LV systolic function, no wall motion abnormality. Protocol: Rolando Stress ECG Details Stage: REST Duration (min): 1 min : 45 sec Speed (mph): 0.0 Grade (%): 0 HR (bpm): 78 SBP (mmHg): 143 DBP (mmHg): 81 METS: --- Stage: REST Duration (min): 8 min : 32 sec Speed (mph): 0.0 Grade (%): 0 HR (bpm): 92 SBP (mmHg): 143 DBP (mmHg): 81 METS: --- Stage: STAGE 1 Duration (min): 1 min : 0 sec Speed (mph): 1.7 Grade (%): 10 HR (bpm): 107 SBP (mmHg): 143 DBP (mmHg): 81 METS: --- Stage: STAGE 1 Duration (min): 2 min : 0 sec Speed (mph): 1.7 Grade (%): 10 HR (bpm): 131 SBP (mmHg): 143 DBP (mmHg): 81 METS: --- Stage: STAGE 1 Duration (min): 3 min : 0 sec Speed (mph): 1.7 Grade (%): 10 HR (bpm): 134 SBP (mmHg): 193 DBP (mmHg): 92 METS: --- Stage: STAGE 2 Duration (min): 0 min : 1 sec Speed (mph): 0.0 Grade (%): 0 HR (bpm): 135 SBP (mmHg): 193 DBP (mmHg): 92 METS: --- Stage: RECOVERY Duration (min): 0 min : 58 sec Speed (mph): 0.0 Grade (%): 0 HR (bpm): 106 SBP (mmHg): 193 DBP (mmHg): 92 METS: --- Stage: RECOVERY Duration (min): 1 min : 58 sec Speed (mph): 0.0 Grade (%): 0 HR (bpm): 88 SBP (mmHg): 193 DBP (mmHg): 92 METS: --- Stage: RECOVERY Duration (min): 2 min : 58 sec Speed (mph): 0.0 Grade (%): 0 HR (bpm): 88 SBP (mmHg): 159 DBP (mmHg): 77 METS: --- Stage: RECOVERY Duration (min): 3 min : 58 sec Speed (mph): 0.0 Grade (%): 0 HR (bpm): 81 SBP (mmHg): 159 DBP (mmHg): 77 METS: --- Stage: RECOVERY Duration (min): 4 min : 58 sec Speed (mph): 0.0 Grade (%): 0 HR (bpm): 86 SBP (mmHg): 157 DBP (mmHg): 75 METS: --- Stage: RECOVERY Duration (min): 5 min : 58 sec Speed (mph): 0.0 Grade (%): 0 HR (bpm): 84 SBP (mmHg): 157 DBP (mmHg): 75 METS: --- Stage: RECOVERY Duration (min): 6 min : 58 sec Speed (mph): 0.0 Grade (%): 0 HR (bpm): 80 SBP (mmHg): 148 DBP (mmHg): 78 METS: --- Stage: RECOVERY Duration (min): 7 min : 6 sec Speed (mph): 0.0 Grade (%): 0 HR (bpm): 79 SBP (mmHg): 148 DBP (mmHg): 78 METS: --- Rest HR: 92 bpm Peak HR: 134 bpm Rest Sys BP: 143 mmHg Peak Sys BP: 193 mmHg Max Pred HR: 152 bpm % Max Pred HR: 88 % Target HR: 129 bpm Max RPP: 25,862 bpm*mmHg Torres Score: -0 Termination Reason: Reached target heart rate or workload Cardiac Symptoms: Shortness of breath Max ST Seg Deviation: 1 mm Total Time: 3 min : 1 sec Rest Crowder BP: 81 mmHg Peak Crowder BP: 92 mmHg Angina Score: None Total METS: 4.7 Resting ECG Sinus rhythm. Stress ECG No ST changes. Arrhythmias None. Report Signatures Stress ECG Echo
== END 2025-01-18 08:28 | disposition home or self-care (01) ==
PROVIDERS: PCP Internal Medicine; Visit Provider Clinical Nurse Specialist
DX: I10 Essential (primary) hypertension (principal)
CPT/HCPCS: 93351